=== PATIENT | female | born 1940 | race Caucasian/White ===

== ENCOUNTER 2023-09-13 11:27 | Inpatient (IN) | payer OTHER ==
[2023-09-13 12:53] LABS: Specific Gravity 1.014 (1.005-1.030); Urine Bacteria 20-50 /HPF (<20); Urine Bilirubin NEGATIVE (Negative); Urine Blood 2+ (Negative); Urine Clarity Extremely Turbid (Clear); Urine Color Orange (Yellow); Urine Glucose NEGATIVE (Negative); Urine Mucus 2+ /HPF (None Seen); Urine Protein 2+ (Negative); Urine RBC >50 /HPF (None Seen); Urine Urobilinogen Normal (Normal); Urine WBC Clump Many /HPF (None Seen); Urine pH 5.5 (5.0-7.0)
[2023-09-13 13:21] LABS: Absolute Lymphocytes (CBC) 0.7 K/uL (0.7-4.9); Hematocrit 38.4 % (36.0-45.0); Lymphocytes % 1.7 % (15.3-44.8); MCV 92.3 fL (80-100); MPV 8.7 fL (7.6-11.3); Platelets 343 thou/uL (152-406); RBC Red Blood Cell Count 4.17 M/uL (3.86-4.86)
[2023-09-13 14:21] LABS: C.diff Antigen/Toxin Ag pos : Tox pos (NEG : NEG)
[2023-09-13 14:29] LABS: Protime INR 1.59
[2023-09-13] MEDS ORDERED: CEFTRIAXONE 2000 MG/VIAL ONE (14:40)
[2023-09-13] MEDS ORDERED: ACETAMINOPHEN 650MG/RECT SUPP PR ONE (14:40)
[2023-09-13] MEDS ORDERED: NA CHLORIDE 0.9% 100 ML ONE (14:40)
[2023-09-13 14:43] LABS: Albumin 2.9 g/dL (3.4-5.0); Bilirubin Total 0.6 mg/dL (0.2-1.0); Magnesium 1.8 mg/dL (1.6-2.4); Potassium 4.4 mEq/L (3.5-5.1); Protein, Total 7.1 g/dL (6.4-8.2)
[2023-09-13 14:52] LABS: Blood Morphology Comment NOT SEEN (NOT SEEN); Dohle Bodies PRESENT; Platelet Estimate ADEQ
[2023-09-13 14:54] LABS: Thyroid Stimulating Hormone 7.87 uIU/mL (0.358-3.740)
[2023-09-13] MEDS ORDERED: NA CHLORIDE 0.9% 1,000 ML ONE (15:33)
--- NOTE | 2023-09-13 16:32 | RAD REPORT ---
EXAM DESCRIPTION: CT - Abdomen Pelvis W Contrast - 09/13/2023 3:12 pm CLINICAL HISTORY: ABD PAIN COMPARISON: Head Brain Wo Cont dated 09/13/2023 TECHNIQUE: Thin cut axial CT imaging of the abdomen and pelvis was performed following intravenous a dministration of 100 mL Isovue 300. Multiplanar reformats were generated and reviewed. All CT scans are performed using dose optimization technique as appropriate and may include automated exposure control or mA/KV adjustment according to patient size. FINDINGS: Bibasilar dependent subsegmental atelectasis. 8 mm pleural-based nodule in the left lower lobe. No other suspicious findings in the lung bases. The liver, spleen, and pancreas show no suspicious findings. Ovoid left soft tissue nodule in the lef t retroperitoneum measured 1.3 cm, may be of adrenal origin. Gallbladder and biliary tree are also wi thout suspicious finding. Symmetric renal function is seen, although motion artifact limits evaluation. Questionable region of hypoenhancement along the superior renal cortex. Multiple exophytic fluid density cysts, largest ragini uring 2.2 cm. No hydronephrosis or suspicious renal mass. No dilated bowel loops. Pronounced wall thickening with mucosal hyperenhancement throughout the ascen ding colon. Less pronounced wall thickening along the transverse colon. Segmental wall thickening wit h mucosal enhancement along the mid to distal sigmoid colon and rectal as well. No free air, free flu id or inflammatory stranding. No hernia, mass or bulky lymphadenopathy. The urinary bladder is withou t significant finding. No suspicious bony findings. IMPRESSION: Pronounced wall thickening and mucosal enhancement involving segments of the colon, name ly the ascending colon through transverse colon, as well as the distal sigmoid colon and rectum. Plac e suggest infectious or inflammatory colitis. Questionable regions of cortical hypoenhancement along the superior pole of the left kidney. This may relate to motion artifact, however possibility of early pyelonephritis cannot be entirely is. Other incidental findings including a pleural-based left lower lobe 8 mm nodule. Follow-up CT chest i s recommended in 6 months to ensure stability of this finding.
--- NOTE | 2023-09-13 16:35 | RAD REPORT ---
EXAM DESCRIPTION: CT - Head Brain Wo Cont - 09/13/2023 3:12 pm CLINICAL HISTORY: ams COMPARISON: No comparisons TECHNIQUE: Noncontrast head CT images were obtained without IV contrast. Multiplanar reformats were generated and reviewed. All CT scans are performed using dose optimization technique as appropriate and may include automated exposure control or mA/KV adjustment according to patient size. FINDINGS: No intracranial hemorrhage, mass, or edema. Midline structures are unremarkable. Moderate diffuse parenchymal volume loss. No evidence of hydrocephalus. Patchy predominantly subcortical white matter hypodensities, nonspecific, but suggestive of chronic s mall vessel ischemic changes. Cruz-white matter differentiation is preserved, without evidence of acute infarct. No abnormal extra- axial fluid collections. Left canal wall up mastoidectomy with cochlear implant in place a component overlying the left occipi reggie calvarium results in streak artifact which limits evaluation. Paranasal sinuses are clear. No acute bony findings. IMPRESSION: No evidence of an acute intracranial process. Chronic findings as above.
--- NOTE | 2023-09-13 17:26 | EDPHYS ---
Physician Documentation [facility] Name: Delphine Aldridge Age: 83 yrs Sex: Female : 1940 Arrival Date: 09/13/2023 Time: 11:27 Bed 14 Private MD: ED Physician Reddy Carrillo HPI: 09/13 17:59 This 83 yrs old Female presents to ER via EMS with complaints of Confusion. rt 17:59 Patient with recent admission for C. difficile colitis presents to the ED with rt confusion, reported leukocytosis, hyponatremia. History limited due to patient's confusion. Symptoms are severe in severity, no other aggravating or alleviating factors.. Historical: - Allergies: 11:36 No Known Allergies; cm10 - PMHx: 11:36 Congestive heart failure; Major depressive disorder; Glaucoma; Ventricular Tachycardia; cm10 Bradycardia; Irritable bowel syndrome; Alzheimer's disease; Venous Insufficiency; Atrial fibrillation; Dementia; Anxiety; Dysphagia; Hypertensive disorder; - Immunization history:: Adult Immunizations up to date. - Social history:: Smoking status: Patient denies any tobacco usage or history of. - Family history:: not pertinent. ROS: 17:59 Unable to obtain ROS due to altered mental status, rt Exam: 17:59 Head/Face: Normocephalic, atraumatic. Chest/axilla: Normal chest wall appearance and rt motion. Nontender with no deformity. No lesions are appreciated. Cardiovascular: Regular rate and rhythm with a normal S1 and S2. No gallops, murmurs, or rubs. Normal PMI, no JVD. No pulse deficits. Respiratory: Lungs have equal breath sounds bilaterally, clear to auscultation and percussion. No rales, rhonchi or wheezes noted. No increased work of breathing, no retractions or nasal flaring. Abdomen/GI: Soft, non-tender, with normal bowel sounds. No distension or tympany. No guarding or rebound. No evidence of tenderness throughout. Skin: Warm, dry with normal turgor. Normal color with no rashes, no lesions, and no evidence of cellulitis. MS/ Extremity: Pulses equal, no cyanosis. Neurovascular intact. Full, normal range of motion. 17:59 Constitutional: The patient appears Pale, confused 17:59 ECG was reviewed by the Attending Physician. 17:59 Neuro: Confused, moves all 4 extremities equally, Vital Signs: 11:34 BP 131 / 66; Pulse 82; Resp 16; Temp 97.1; Pulse Ox 100% on R/A; Pain 0/10; cm10 12:49 BP 125 / 58; Pulse 83; Resp 18 S; Pulse Ox 98% on R/A; cm10 13:00 BP 132 / 65; Pulse 82; Resp 16; Pulse Ox 100% on R/A; cm10 13:30 BP 109 / 94; Pulse 93; Resp 16; Pulse Ox 96% on R/A; cm10 14:00 BP 127 / 63; Pulse 84; Resp 14; Pulse Ox 98% on R/A; cm10 15:45 BP 135 / 58; Pulse 80; Resp 16; Pulse Ox 97% on R/A; cm10 16:00 BP 141 / 56; Pulse 82; Resp 16; Pulse Ox 100% on R/A; cm10 16:30 BP 123 / 51; Pulse 80; Resp 16; Pulse Ox 100% ; cm10 17:30 BP 142 / 57; Pulse 81; Resp 15; Pulse Ox 100% on R/A; cm10 18:00 BP 134 / 64; Pulse 80; Resp 16; Pulse Ox 98% on R/A; cm10 18:30 BP 130 / 75; Pulse 79; Resp 16; Pulse Ox 92% on R/A; cm10 19:07 BP 131 / 75; Pulse 81; Resp 17 S; Pulse Ox 100% on R/A; ha1 11:34 Pain Scale: Adult cm10 MDM: 11:39 Patient medically screened. rt 17:59 Differential Diagnosis Infection, intracranial hemorrhage, electrolyte disturbance. rt Data reviewed: vital signs, nurses notes, lab test result(s), EKG, radiologic studies. Consideration of Admission/Observation Patient was admitted/placed on observation. Management of patient was discussed with the following: Hospitalist: Agrees to admit. I considered the following discharge prescriptions or medication management in the emergency department Medications were administered in the Emergency Department. See MAR. Independent interpretation of the following test(s) in the Emergency Department CT Scan: My interpretation is No bowel obstruction syndrome interpretation of CT scan images. Care significantly affected by the following chronic conditions: Congestive Heart Failure. Counseling: I had a detailed discussion with the patient and/or guardian regarding the historical points, exam findings, and any diagnostic results supporting the discharge/admit diagnosis, lab results, radiology results, the need for further work-up and treatment in the hospital. ED course: Patient had no clear source of infection with stable vital signs, there was a delay in obtaining labs. As patient has CHF and possible hyponatremia, will be judicious with fluids. Once urinary tract infection was identified as well as C. difficile, antibiotics were given. Patient to be admitted for further care.. 09/13 11:49 Order name: CBC with Diff; Complete Time: 15:23 rt 09/13 11:49 Order name: CMP; Complete Time: 15:23 rt 09/13 11:49 Order name: Lipase; Complete Time: 15:23 rt 09/13 11:49 Order name: Urinalysis w/ reflexes; Complete Time: 13:41 rt 09/13 11:49 Order name: TSH; Complete Time: 15: rt 09/13 11:49 Order name: Magnesium; Complete Time: 15: rt 09/13 12:40 Order name: Blood Culture Adult (2) rt 09/13 12:40 Order name: Lactate w/ 2H reflex if indic.; Complete Time: 13:41 rt 09/13 12:40 Order name: Protime (+inr); Complete Time: 14:39 rt 09/13 12:40 Order name: Ptt, Activated; Complete Time: 14:39 rt 09/13 12:40 Order name: CDIFF; Complete Time: 14:39 rt 09/13 12:56 Order name: Urine Culture EDMS 09/13 14:53 Order name: Manual Differential; Complete Time: 15: EDFL 09/13 14:56 Order name: T4 Free; Complete Time: 15:23 EDMS 09/13 18:19 Order name: CBC with Automated Diff EDMS 09/13 18:19 Order name: CBC with Automated Diff EDMS 09/13 18:19 Order name: Comprehensive Metabolic Panel EDFL 09/13 18:19 Order name: Comprehensive Metabolic Panel EDFL 09/13 18:19 Order name: Lipid Profile EDMS 09/13 18:19 Order name: Lipid Profile EDFL 09/13 18:19 Order name: Liver (Hepatic) Function EDMS 09/13 18:19 Order name: Liver (Hepatic) Function EDFL 09/13 18:19 Order name: Protime (+INR) EDMS 09/13 18:19 Order name: Protime (+INR) EDMS 09/13 18:19 Order name: PTT, Activated Partial Thromb EDMS 09/13 18:19 Order name: PTT, Activated Partial Thromb EDMS 09/13 11:49 Order name: CT Abd/Pelvis - IV Contrast Only; Complete Time: 16:40 rt 09/13 11:49 Order name: CT Head Brain wo Cont; Complete Time: 16:40 rt 09/13 12:40 Order name: EKG; Complete Time: 12:40 rt 09/13 11:49 Order name: IV Saline Lock; Complete Time: 13:13 rt 09/13 11:49 Order name: Labs collected and sent; Complete Time: 13:13 rt 09/13 12:31 Order name: Labs - recollect needed: recollect all the labs/ hemolyzed per Binta; eb Complete Time: 16:03 09/13 12:40 Order name: Accucheck; Complete Time: 19:06 rt 09/13 12:40 Order name: Cardiac monitoring; Complete Time: 13:12 rt 09/13 12:40 Order name: EKG - Nurse/Tech; Complete Time: 13:13 rt 09/13 12:40 Order name: IV Saline Lock - Large Bore; Complete Time: 13:12 rt 09/13 12:40 Order name: O2 Per Protocol; Complete Time: 13:12 rt 09/13 12:40 Order name: O2 Sat Monitoring; Complete Time: 13:12 rt 09/13 12:40 Order name: Vital Signs; Complete Time: 13:12 rt 09/13 13:24 Order name: Labs - recollect needed: recollect blue top and green top/ both under eb filled; Complete Time: 14:04 EC:59 Rate is 87 beats/min. Rhythm is regular, 1st Degree Block with No ectopy. QRS [place] is rt Normal. QRS interval is normal. QT interval is normal. Clinical impression: NSR w/ Non-specific ST/T Changes. Administered Medications: 14:39 Not Given (Other Intervention Used): [id number] mg PO once rt 15:00 Drug: Rocephin IV 2 grams IV at calculated rate once; Given slow IV push per [place] cm10 instructions Route: IV; Rate: calculated rate; Site: left forearm; 15:52 Follow up: Response: No adverse reaction; IV Status: Completed infusion; IV Intake: cm10 100ml 15:00 Drug: Acetaminophen DC Suppository 650 mg DC once Route: DC; cm10 15:52 Follow up: Response: No adverse reaction cm10 15:51 Drug: NS 0.9% IV 1000 ml IV at 1 bolus Per protocol; 1000 mL bolus Route: IV; Rate: 1 cm10 bolus; Site: left forearm; 18:02 Follow up: IV Status: Completed infusion; IV Intake: 100ml cm10 18:02 Drug: metroNIDAZOLE IVPB 500 mg 100 ml IVPB at 200 ml/hr once over 30 mins Volume: 100 cm10 ml; Route: IVPB; Rate: 200 ml/hr; Infused Over: 30 mins; Site: left forearm; 19:06 Follow up: Response: No adverse reaction; IV Status: Completed infusion; IV Intake: cm10 100ml Disposition Summary: 09/13/23 17:26 Hospitalization Ordered Notes: Hospitalization Status: Inpatient Admission rt Provider: David Yanes rt Location: Telemetry/[facility] (Inpatient) rt Condition: Fair rt Problem: new rt Symptoms: are unchanged rt Bed/Room Type: Standard rt Room Assignment: 215(09/13/23 18:41) rv1 Diagnosis - Confusion rt - C. difficile colitis rt - UTI rt - Leukocytosis rt - Hyponatremia rt Forms: - Medication Reconciliation Form rt - SBAR form rt - Leadership Thank You Letter rt Critical care time excluding procedures: 18:06 Critical care time: Bedside Care: 30 minutes, Consultation: 5 minutes. Total time: 35 rt minutes Signatures: Dispatcher [employer] EDFL Angelica Sim Ryan, MD MD rt Sharee Smith rv1 Constanza Chowdhury RN RN cm10 Corrections: (The following items were deleted from the chart) 18:41 17:26 rt rv1
--- NOTE | 2023-09-13 17:26 | P.HP ---
Certification for Inpatient Patient admitted to: Inpatient With expected LOS: >2 Midnights Patient will require the following post-hospital care: None Practitioner: I am a practitioner with admitting privileges, knowledge of patient current condition, hospital course, and medical plan of care. Services: Services provided to patient in accordance with Admission requirements found in Title 42 Section 412.3 of the Code of Federal Regulations Patient History Date of Service: 09/13/23 Reason for admission: Persistent diarrhea History of Present Illness: Patient is an 83-year-old female with history of chronic kidney disease stage III, C. difficile colitis, Alzheimer's dementia, and recent Vfib/Vtach cardiac arrest on August 16, 2023. Patient was cardioverted and intubated and sedated and transferred to [facility] from [facility]. While at [facility] patient had a left heart catheterization which revealed nonischemic cardiomyopathy with an ejection fraction of 40%. Patient had dual- chamber ICD placed on August 27 after she was extubated on August 23, 2023. Patient was given IV fluids and her renal function improved. Patient was discharged to [facility] on September 05, 2023. Patient has been at [facility] for the last 10 days. Patient has had some abdominal pain, as well as diarrhea. Patient is developed some worsening confusion and with patient abdominal pain and diarrhea she was sent back to our emergency room for further evaluation. Patient has been given Flagyl and oral vancomycin in the past for her C. difficile. At this time, will start IV vancomycin and oral vancomycin. Patient will be changed to Dificid if there is no improvement. Patient will be admitted for IV hydration and antibiotic therapy. - Past Medical/Surgical History -: C. difficile colitis -: Nonischemic cardiomyopathy with an ejection fraction of 40 to 45% -: Hypertension -: Overactive bladder -: Chronic kidney disease stage III -: Collagenous colitis -: Alzheimer's dementia -: Atrial fibrillation -: Ventricular fibrillation/ventricular tachycardia cardiac arrest Past Surgical History: Patient denies surgical history -: ICD placement on August 27 -: -: Cochlear implant -: D&C -: EGD -: Total hip arthroplasty -: Total knee arthroplasty -: NAZARIO - Family History Father Family History: Reviewed- Non-Contributory - Social History Smoking Status: Former smoker Alcohol use: No CD- Drugs: No Review of Systems 10-point ROS is otherwise unremarkable Physical Examination - Vital Signs Temperature: 101 F (reviewed) - Physical Exam General: Alert, In no apparent distress, Oriented x1, Confused HEENT: Atraumatic, PERRLA, Mucous membr. moist/pink, EOMI, Sclerae nonicteric Neck: Supple, 2+ carotid pulse no bruit, No LAD, Without JVD or thyroid abnormality Respiratory: Clear to auscultation bilaterally, Normal air movement Cardiovascular: Regular rate/rhythm, Normal S1 S2 Gastrointestinal: Soft and benign, Non-distended, No rebound, No guarding, Tenderness Musculoskeletal: No tenderness Integumentary: No rashes Neurological: Sensation intact, Cranial nerves 3-12 intact - Studies Laboratory Data (last 24 hrs) 09/13/23 09/13/23 09/13/23 13:59 13:59 13:04 WBC 39.80 H Hgb 13.0 Hct 38.4 Plt Count 343 PT 17.3 H INR 1.59 APTT 34.9 Sodium 122 L Potassium 4.4 BUN 30 H Creatinine 1.52 H Glucose 104 Magnesium 1.8 Total Bilirubin 0.6 AST 14 L ALT 13 Alkaline Phosphatase 135 H Lipase 13 Assessment & Plan - Problems (Diagnosis) (1) Clostridium difficile colitis Current Visit: Yes Status: Acute (2) Cardiac arrest Current Visit: Yes Status: Acute (3) Atrial fibrillation Current Visit: Yes Status: Acute (4) Nonischemic cardiomyopathy Current Visit: Yes Status: Acute (5) Alzheimer's dementia Current Visit: Yes Status: Acute - Plan -IV antibiotics; start oral vancomycin -IV fluids -GI consultation as needed -CBC, CMP, lipase, stool cultures reviewed -Full liquid -continue with cardiac meds -Monitor renal function Discharge Plan: Home Plan to discharge in: Greater than 2 days - Advance Directives Does patient have a Living Will: No Does patient have a Durable POA for Healthcare: No - Code Status/Comfort Care Code Status Assessed: Yes Code Status: Full Code Critical Care: No Time Spent Managing PTS Care (In Minutes): 45
--- NOTE | 2023-09-13 17:26 | ER ---
Nurse's Notes [facility] Name: Delphine Aldridge Age: 83 yrs Sex: Female : 1940 Arrival Date: 09/13/2023 Time: 11:27 Bed 14 Private MD: Diagnosis: Confusion;C. difficile colitis;UTI;Leukocytosis;Hyponatremia Presentation: 09/13 11:34 Chief complaint: EMS states: Sent from [facility] due to patient having cm10 abnormal labs. Per EMS report, sodium was decreased and WBC were elevated. EMS reports that patient has been more confused, has not been wanting to ambulate and has had a decreased in appetite. Coronavirus screen: Vaccine status: Patient reports receiving the 2nd dose of the covid vaccine. Client denies travel out of the [place] in the last 14 days. Ebola Screen: Patient denies travel to an Ebola-affected area in the 21 days before illness onset. No symptoms or risks identified at this time. Initial Sepsis Screen: Does the patient meet any 2 criteria? No. Patient's initial sepsis screen is negative. Does the patient have a suspected source of infection? No. Patient's initial sepsis screen is negative. Risk Assessment: Do you want to hurt yourself or someone else? Patient reports no desire to harm self or others. Onset of symptoms was September 13, 2023. 11:34 Method Of Arrival: EMS: [facility] cm10 11:34 Acuity: GRACIE 3 cm10 Triage Assessment: 11:40 General: Appears in no apparent distress. comfortable, Behavior is calm, cooperative. cm10 Pain: Unable to use pain scale. Does not appear to understand pain scale. EENT: No deficits noted. Neuro: No deficits noted. Level of Consciousness is awake, confused, Oriented to person. Respiratory: No deficits noted. Airway is patent Respiratory effort is even, unlabored, Respiratory pattern is regular, symmetrical. Historical: - Allergies: 11:36 No Known Allergies; cm10 - PMHx: 11:36 Congestive heart failure; Major depressive disorder; Glaucoma; Ventricular Tachycardia; cm10 Bradycardia; Irritable bowel syndrome; Alzheimer's disease; Venous Insufficiency; Atrial fibrillation; Dementia; Anxiety; Dysphagia; Hypertensive disorder; - Immunization history:: Adult Immunizations up to date. - Social history:: Smoking status: Patient denies any tobacco usage or history of. - Family history:: not pertinent. Screenin:00 [facility] ED Fall Risk Assessment (Adult) History of falling in the last 3 months, cm10 including since admission Yes- fall prone (multiple falls) (3 pts) Confusion or Disorientation Yes (5 pts) Intoxicated or Sedated No (0 pts) Impaired Gait Yes (1 pt) Mobility Assist Device Used Yes (1 pt) Altered Elimination Yes (1 pt) Score/Fall Risk Level 3 or more points = High Risk Oriented to surroundings, Maintained a safe environment, Assessed \T\ reinforced patient's understanding of fall precautions, Provided non-skid footwear, Hourly rounding (assess needs \T\ fall precautionary measures) done, Used ambulatory aids as needed (educated on \T\ assisted with). Abuse screen: Denies threats or abuse. Denies injuries from another. Nutritional screening: No deficits noted. Tuberculosis screening: No symptoms or risk factors identified. Assessment: 12:00 General: Appears in no apparent distress. comfortable, Behavior is calm, cooperative. cm10 Neuro: No deficits noted. Level of Consciousness is awake, confused, Oriented to person. Cardiovascular: No deficits noted. Capillary refill < 3 seconds. Respiratory: No deficits noted. Airway is patent Respiratory effort is even, unlabored, Respiratory pattern is regular, symmetrical. GI: No deficits noted. Stools are reported to be loose. : No deficits noted. No signs and/or symptoms were reported regarding the genitourinary system. EENT: No deficits noted. No signs and/or symptoms were reported regarding the EENT system. 13:15 Reassessment: Patient appears in no apparent distress at this time. No changes from cm10 previously documented assessment. 13:29 Reassessment: Phlebotomy contacted at this time to re-draw labs. cm10 13:50 Reassessment: Phlebotomy at bedside. cm10 14:16 Reassessment: Patient appears in no apparent distress at this time. No changes from cm10 previously documented assessment. Family at bedside at this time. 15:25 Reassessment: Patient appears in no apparent distress at this time. No changes from cm10 previously documented assessment. Patient and/or family updated on plan of care and expected duration. Pain level reassessed. 16:30 Reassessment: Patient appears in no apparent distress at this time. No changes from cm10 previously documented assessment. Patient and/or family updated on plan of care and expected duration. Pain level reassessed. 18:07 Reassessment: Patient appears in no apparent distress at this time. Patient and/or cm10 family updated on plan of care and expected duration. Pain level reassessed. Pt more awake and alert at this time. Patient states feeling better. 18:52 Reassessment: Attempted to call report, no answer. cm10 19:10 General: Appears comfortable, Behavior is calm. Pain: Unable to use pain scale. FLACC ha1 scale score is 0 out of 10. Neuro: Level of Consciousness is awake, confused, Oriented to person. Cardiovascular: Capillary refill < 3 seconds. Respiratory: Airway is patent Respiratory effort is even, unlabored, Respiratory pattern is regular, symmetrical. GI: Stools are reported to be diarrhea. : No signs and/or symptoms were reported regarding the genitourinary system. Derm: Skin is fragile, Skin is normal. Musculoskeletal: Circulation, motion, and sensation intact. 19:18 Reassessment: attempted to give report. ha1 Vital Signs: 11:34 BP 131 / 66; Pulse 82; Resp 16; Temp 97.1; Pulse Ox 100% on R/A; Pain 0/10; cm10 12:49 BP 125 / 58; Pulse 83; Resp 18 S; Pulse Ox 98% on R/A; cm10 13:00 BP 132 / 65; Pulse 82; Resp 16; Pulse Ox 100% on R/A; cm10 13:30 BP 109 / 94; Pulse 93; Resp 16; Pulse Ox 96% on R/A; cm10 14:00 BP 127 / 63; Pulse 84; Resp 14; Pulse Ox 98% on R/A; cm10 15:45 BP 135 / 58; Pulse 80; Resp 16; Pulse Ox 97% on R/A; cm10 16:00 BP 141 / 56; Pulse 82; Resp 16; Pulse Ox 100% on R/A; cm10 16:30 BP 123 / 51; Pulse 80; Resp 16; Pulse Ox 100% ; cm10 17:30 BP 142 / 57; Pulse 81; Resp 15; Pulse Ox 100% on R/A; cm10 18:00 BP 134 / 64; Pulse 80; Resp 16; Pulse Ox 98% on R/A; cm10 18:30 BP 130 / 75; Pulse 79; Resp 16; Pulse Ox 92% on R/A; cm10 19:07 BP 131 / 75; Pulse 81; Resp 17 S; Pulse Ox 100% on R/A; ha1 11:34 Pain Scale: Adult cm10 ED Course: 11:27 Patient arrived in ED. cm10 11:34 Constanza Chowdhury, JEAN is Primary Nurse. cm10 11:36 Triage completed. cm10 11:38 Reddy Carrillo MD is Attending Physician. rt 11:39 Arm band placed on Patient placed in an exam room, on a stretcher. cm10 12:00 Patient has correct armband on for positive identification. Placed in gown. Bed in low cm10 position. Call light in reach. Side rails up X2. Adult w/ patient. Provided Education on: ER process and procedures. . Client placed on continuous cardiac and pulse oximetry monitoring. NIBP monitoring applied. 12:00 Inserted saline lock: 22 gauge in left forearm, using aseptic technique. Blood cm10 collected. 12:40 Straight cath inserted, using sterile technique, 14 Fr. Specimen obtained. Returned cm10 cloudy urine. Patient tolerated well. 13:03 Radiology exam delayed due to lab results not completed at this time. (BUN/Creatinine). nj 13:03 Radiology exam delayed due to IV insertion attempt and/or patient not having nj appropriate IV at this time. 13:17 No provider procedures requiring assistance completed. cm10 13:55 Radiology exam delayed due to lab results not completed at this time. (BUN/Creatinine). ls3 15:13 CT Head Brain wo Cont In Process Unspecified. EDMS 15:14 CT Abd/Pelvis - IV Contrast Only In Process Unspecified. EDMS 15:25 Patient moved back from CT. cm10 17:24 David Yanes MD is Hospitalizing Provider. rt 19:02 Report given to JEAN Feliciano. cm10 20:00 Patient admitted, IV remains in place. ha1 Administered Medications: 14:39 Not Given (Other Intervention Used): [id number] mg PO once rt 15:00 Drug: Rocephin IV 2 grams IV at calculated rate once; Given slow IV push per pharmarcy cm10 instructions Route: IV; Rate: calculated rate; Site: left forearm; 15:52 Follow up: Response: No adverse reaction; IV Status: Completed infusion; IV Intake: cm10 100ml 15:00 Drug: Acetaminophen WI Suppository 650 mg WI once Route: WI; cm10 15:52 Follow up: Response: No adverse reaction cm10 15:51 Drug: NS 0.9% IV 1000 ml IV at 1 bolus Per protocol; 1000 mL bolus Route: IV; Rate: 1 cm10 bolus; Site: left forearm; 18:02 Follow up: IV Status: Completed infusion; IV Intake: 100ml cm10 18:02 Drug: metroNIDAZOLE IVPB 500 mg 100 ml IVPB at 200 ml/hr once over 30 mins Volume: 100 cm10 ml; Route: IVPB; Rate: 200 ml/hr; Infused Over: 30 mins; Site: left forearm; 19:06 Follow up: Response: No adverse reaction; IV Status: Completed infusion; IV Intake: cm10 100ml Medication: 13:16 VIS not applicable for this client. cm10 Intake: 15:52 IV: 100ml; Total: 100ml. cm10 18:02 IV: 100ml; Total: 200ml. cm10 19:06 IV: 100ml; Total: 300ml. cm10 Outcome: 17:26 Decision to Hospitalize by Provider. rt 19:59 Admitted to Med/surg accompanied by tech, family with patient, via stretcher, room 215, ha1 with chart, Report called to JEAN Burger 19:59 Condition: stable 19:59 Discharge instructions given to patient, family, Instructed on the need for admit, Demonstrated understanding of instructions, 20:00 Patient left the ED. ha1 Signatures: Dispatcher [employer] EDMS Jesús Gutierrez Lynzie ls3 Jodie Maxwell RN RN ha1 Reddy Carrillo MD MD rt Constanza Chowdhury RN RN 10
[2023-09-13] MEDS ORDERED: METRONIDAZOLE 500mg IVPB 500 MG/100 ML BAG IV ONE (17:52)
[2023-09-13] MEDS ORDERED: ONDANSETRON 4 MG/2 ML VIAL IV PRN (18:13)
[2023-09-13] MEDS: APIXABAN 5 MG TABLET PO SCH (21:55)
[2023-09-13] MEDS: NA CHLORIDE 0.9% 1,000 ML IV SCH (21:55)
[2023-09-13] MEDS: SPIRONOLACTONE 25 MG TABLET PO SCH (21:55)
[2023-09-13] MEDS: MORPHINE 2 MG/ML SYR IV PRN (22:06)
[2023-09-13 22:07] VITALS: BMI 22.1
[2023-09-13] MEDS: METHYLPREDNISOLONE 125 MG INJ IV SCH (23:48)
[2023-09-14] MEDS: ACETAMINOPHEN 500 MG TAB PO PRN (00:39)
[2023-09-14 00:50] LABS: Specific Gravity 1.029 (1.005-1.030); Urine Bacteria None Seen /HPF (<20); Urine Bilirubin NEGATIVE (Negative); Urine Blood 1+ (Negative); Urine Clarity Extremely Turbid (Clear); Urine Color Orange (Yellow); Urine Glucose NEGATIVE (Negative); Urine Mucus 1+ /HPF (None Seen); Urine Protein 2+ (Negative); Urine RBC 21-50 /HPF (None Seen); Urine Urobilinogen Normal (Normal); Urine WBC Clump Many /HPF (None Seen); Urine pH 5.5 (5.0-7.0)
[2023-09-14] MEDS: VANCOMYCIN HCL 125 MG CAPSULE PO SCH (01:00)
[2023-09-14 04:25] LABS: Absolute Lymphocytes (CBC) 0.2 K/uL (0.7-4.9); Hematocrit 33.5 % (36.0-45.0); Lymphocytes % 0.7 % (15.3-44.8); MCV 92.8 fL (80-100); MPV 8.4 fL (7.6-11.3); Platelets 288 thou/uL (152-406); RBC Red Blood Cell Count 3.61 M/uL (3.86-4.86)
[2023-09-14 04:34] LABS: Protime INR 1.57
[2023-09-14 04:42] LABS: AST/SGOT 8 U/L (15-37); Albumin 2.9 g/dL (3.4-5.0); Alkaline Phosphatase 123 U/L (45-117); BUN Blood Urea Nitrogen 31 mg/dL (7-18); Bicarbonate 23 mEq/L (21-32); Bilirubin Direct 0.1 mg/dL (0-0.2); Bilirubin Indirect, Calculated 0.2 mg/dL (0.2-0.8); Bilirubin Total 0.3 mg/dL (0.2-1.0); Glomerular Filtration Rate 38 ml/min (=/>90); Glucose Level 115 mg/dL (74-106); HDL Cholesterol 41 mg/dL (40-60); LDL Cholesterol, Calculated 87 mg/dL (<130); Potassium 4.4 mEq/L (3.5-5.1); Protein, Total 6.7 g/dL (6.4-8.2); Sodium Level 123 mEq/L (136-145)
[2023-09-14 04:47] LABS: ALT/SGPT < 10 U/L (13-56)
[2023-09-14] MEDS: METOPROLOL TAR 25 MG TAB PO SCH (06:08)
--- NOTE | 2023-09-14 11:38 | P.PN ---
Subjective Date of Service: 09/14/23 Chief Complaint: Persistent diarrhea HPI per Patient is an 83-year-old female with history of chronic kidney disease stage III, C. difficile colitis, Alzheimer's dementia, and recent Vfib/Vtach cardiac arrest on August 16, 2023. Patient was cardioverted and intubated and sedated and transferred to [facility] from [facility]. While at [facility] patient had a left heart catheterization which revealed nonischemic cardiomyopathy with an ejection fraction of 40%. Patient had dual- chamber ICD placed on August 27 after she was extubated on August 23, 2023. Patient was given IV fluids and her renal function improved. Patient was discharged to [facility] on September 05, 2023. Patient has been at [facility] for the last 10 days. Patient has had some abdominal pain, as well as diarrhea. Patient is developed some worsening confusion and with patient abdominal pain and diarrhea she was sent back to our emergency room for further evaluation. Patient has been given Flagyl and oral vancomycin in the past for her C. difficile. At this time, will start IV vancomycin and oral vancomycin. Patient will be changed to Dificid if there is no improvement. Patient will be admitted for IV hydration and antibiotic therapy. - Physical Exam General: Alert, In no apparent distress, Oriented x1, Confused HEENT: Atraumatic, PERRLA, Mucous membr. moist/pink, EOMI, Sclerae nonicteric Neck: Supple, 2+ carotid pulse no bruit, No LAD, Without JVD or thyroid abnormality Respiratory: Clear to auscultation bilaterally, Normal air movement Cardiovascular: Regular rate/rhythm, Normal S1 S2 Gastrointestinal: Soft and benign, Non-distended, No rebound, No guarding, Tend erness Musculoskeletal: No tenderness Integumentary: No rashes Neurological: Sensation intact, Cranial nerves 3-12 intact Review of Systems PER HPI Physical Examination - Vital Signs Temperature: 97.4 F Blood Pressure: 133/58 Pulse: 74 Respirations: 20 Pulse Ox (%): 96 - Studies Laboratory Data (last 24 hrs) 09/13/23 09/13/23 09/13/23 13:59 13:59 13:04 WBC 39.80 H Hgb 13.0 Hct 38.4 Plt Count 343 PT 17.3 H INR 1.59 APTT 34.9 Sodium 122 L Potassium 4.4 BUN 30 H Creatinine 1.52 H Glucose 104 Magnesium 1.8 Total Bilirubin 0.6 AST 14 L ALT 13 Alkaline Phosphatase 135 H Lipase 13 Assessment And Plan - Plan Assessment & Plan (1) Clostridium difficile colitis Current Visit: Yes Status: Acute -IV antibiotics; start oral vancomycin -IV fluids -GI consultation as needed -CBC, CMP, lipase, stool cultures reviewed -Full liquid Sepsis without shock likely source secondary acute on chronic C. difficile Failed outpatient treatment for C. difficile WBCs 39.80, repeat 24.40 Acute on chronic kidney injury likely secondary to prerenal dehydration Trend kidney function BUN 30 creatinine 1.5, IV fluids Hyponatremia improving Sodium 122, 123 -Monitor renal function History cardiac arrest Current Visit: Yes Status: Acute Nonischemic cardiomyopathy Current Visit: Yes Status: Acute Atrial fibrillation Current Visit: Yes Status: Acute -continue with cardiac meds Alzheimer's dementia Current Visit: Yes Status: Acute Supportive care, fall precaution DVT Eliquis Diet cardiac Full code Discharge Plan: Home Plan to discharge in: Greater than 2 days Discharge Plan: Penitentiary - Code Status/Comfort Care Code Status: Full Code Critical Care: No Time Spent Managing PTS Care (In Minutes): 35
[2023-09-15] MEDS: LORazepam 2 MG/ML VIAL IV ONE (02:44)
[2023-09-15 04:28] LABS: Absolute Lymphocytes (CBC) 0.4 K/uL (0.7-4.9); Hematocrit 29.3 % (36.0-45.0); Lymphocytes % 3.7 % (15.3-44.8); MPV 8.4 fL (7.6-11.3); Platelets 325 thou/uL (152-406); RBC Red Blood Cell Count 3.15 M/uL (3.86-4.86)
[2023-09-15 04:45] LABS: Potassium 4.2 mEq/L (3.5-5.1)
[2023-09-15 05:58] LABS: Blood Morphology Comment NOTED (NOT SEEN); Burr Cells FEW; Platelet Estimate ADEQ; Platelets, Giant NOTED; Poikilocytosis SLIGHT
[2023-09-15] MEDS: QUETIAPINE 25 MG TAB PO ONE ×2 (07:34→23:40)
--- NOTE | 2023-09-15 07:46 | P.PN ---
Subjective Date of Service: 09/15/23 Chief Complaint: Persistent diarrhea HPI per Patient is an 83-year-old female with history of chronic kidney disease stage III, C. difficile colitis, Alzheimer's dementia, and recent Vfib/Vtach cardiac arrest on August 16, 2023. Patient was cardioverted and intubated and sedated and transferred to [facility] from [facility]. While at [facility] patient had a left heart catheterization which revealed nonischemic cardiomyopathy with an ejection fraction of 40%. Patient had dual- chamber ICD placed on August 27 after she was extubated on August 23, 2023. Patient was given IV fluids and her renal function improved. Patient was discharged to [facility] on September 05, 2023. Patient has been at [facility] for the last 10 days. Patient has had some abdominal pain, as well as diarrhea. Patient is developed some worsening confusion and with patient abdominal pain and diarrhea she was sent back to our emergency room for further evaluation. Patient has been given Flagyl and oral vancomycin in the past for her C. difficile. At this time, will start IV vancomycin and oral vancomycin. Patient will be changed to Dificid if there is no improvement. Patient will be admitted for IV hydration and antibiotic therapy. - Physical Exam General: Alert, In no apparent distress, Oriented x1, Confused HEENT: Atraumatic, PERRLA, Mucous membr. moist/pink, EOMI, Sclerae nonicteric Neck: Supple, 2+ carotid pulse no bruit, No LAD, Without JVD or thyroid abnormality Respiratory: Clear to auscultation bilaterally, Normal air movement Cardiovascular: Regular rate/rhythm, Normal S1 S2 Gastrointestinal: Soft and benign, Non-distended, No rebound, No guarding, Tend erness Musculoskeletal: No tenderness Integumentary: No rashes Neurological: Sensation intact, Cranial nerves 3-12 intact Physical Examination - Vital Signs Temperature: 97.2 F Blood Pressure: 138/61 Pulse: 68 Respirations: 17 Pulse Ox (%): 98 - Studies Microbiology Data (last 24 hrs): 09/13/23 12:37 Clean Catch Urine [place] Count - Final >100,000 CFU/ML. 09/13/23 12:37 Clean Catch Urine - Final Klebsiella Oxytoca Assessment And Plan - Plan Assessment & Plan (1) Clostridium difficile colitis Current Visit: Yes Status: Acute -IV antibiotics; start oral vancomycin -IV fluids -GI consultation as needed -CBC, CMP, lipase, stool cultures reviewed -Full liquid Sepsis without shock likely source secondary acute on chronic C. difficile Failed outpatient treatment for C. difficile WBCs 39.80, repeat 24.40 Acute on chronic kidney injury likely secondary to prerenal dehydration Trend kidney function BUN 30 creatinine 1.5, IV fluids Hyponatremia improving Sodium 122, 123 -Monitor renal function History cardiac arrest Current Visit: Yes Status: Acute Nonischemic cardiomyopathy Current Visit: Yes Status: Acute Atrial fibrillation Current Visit: Yes Status: Acute -continue with cardiac meds Alzheimer's dementia Current Visit: Yes Status: Acute Supportive care, fall precaution DVT Eliquis Diet cardiac Full code Discharge Plan: Home Plan to discharge in: Greater than 2 days
[2023-09-16 04:22] LABS: Absolute Lymphocytes (CBC) 0.8 K/uL (0.7-4.9); Hematocrit 28.5 % (36.0-45.0); Lymphocytes % 8.3 % (15.3-44.8); MCV 93.3 fL (80-100); MPV 8.4 fL (7.6-11.3); Platelets 323 thou/uL (152-406); RBC Red Blood Cell Count 3.06 M/uL (3.86-4.86)
[2023-09-16 04:27] LABS: Magnesium 1.9 mg/dL (1.6-2.4); Potassium 4.2 mEq/L (3.5-5.1)
--- NOTE | 2023-09-16 07:33 | P.PN ---
Date of Service: 09/16/23 Chief Complaint: C diff isolation. Pt not aware of any further diarrhea, right knee hematoma tender HPI per Patient is an 83-year-old female with history of chronic kidney disease stage III, C. difficile colitis, Alzheimer's dementia, and recent Vfib/Vtach cardiac arrest on August 16, 2023. Patient was cardioverted and intubated and sedated and transferred to [facility] from [facility]. While at [facility] patient had a left heart catheterization which revealed nonisc hemic cardiomyopathy with an ejection fraction of 40%. Patient had dual-chamber ICD placed on August 27 after she was extubated on August 23, 2023. Patient was given IV fluids and her renal function improved. Patient was discharged to [facility] on September 05, 2023. Patient has been at [facility] for the last 10 days. Patient has had some abdominal pain, as well as diarrhea. Patient is developed some worsening confusion and with patient abdominal pain and diarrhea she was sent back to our emergency room for further evaluation. Patient has been given Flagyl and oral vancomycin in the past for her C. difficile. At this time, will start IV vancomycin and oral vancomycin. Patient will be changed to Dificid if there is no improvement. Patient will be admitted for IV hydration and antibiotic therapy. - Physical Exam General: Alert, In no apparent distress, Oriented x 2, HEENT: Atraumatic, PERRLA, Mucous membr. moist/pink, EOMI, Sclerae nonicteric, cochlear implant Neck: Supple, 2+ carotid pulse, No LAD, Without JVD or thyroid abnormality Respiratory: Clear to auscultation bilaterally, Normal air movement Cardiovascular: Regular rate/rhythm, Normal S1 S2, fresh pacemaker incision healing well Gastrointestinal: Soft and benign, Non-distended, No rebound, No guarding, mild lower quad tenderness Musculoskeletal: No tenderness Integumentary: No rashes Neurological: Sensation intact Physical Examination - Vital Signs Temperature: 97.2 F Blood Pressure: 138/61 Pulse: 68 Respirations: 17 Pulse Ox (%): 98 - Studies Microbiology Data (last 24 hrs): 09/13/23 12:37 Clean Catch Urine [place] Count - Final >100,000 CFU/ML. 09/13/23 12:37 Clean Catch Urine - Final Klebsiella Oxytoca Assessment And Plan - Plan Assessment & Plan (1) Clostridium difficile colitis Current Visit: Yes Status: Acute -Continue oral vancomycin -IV fluids -GI consultation as needed -CBC, CMP, lipase, stool cultures reviewed -Full liquid - advance to cardiac Sepsis without shock likely source secondary acute on chronic C. difficile WBCs 39.80 - trending down. Urine culture + for K. Oxytoca, sensitive to most abx. Will give Rocephin. Acute on chronic kidney injury likely secondary to prerenal dehydration Trend kidney function BUN 27 creatinine 0.87, IV fluids Hyponatremia improving Sodium 122, 123, 126 ->134 this am -Monitor renal function History cardiac arrest Current Visit: Yes Status: Acute Nonischemic cardiomyopathy Current Visit: Yes Status: Acute Atrial fibrillation Current Visit: Yes Status: Acute -continue with cardiac meds Alzheimer's dementia Current Visit: Yes Status: Acute Supportive care, fall precaution Hematoma to right knee: Pad knee with pillows, pain medications as required DVT Eliquis Diet cardiac Full code Discharge Plan: Home Plan to discharge in: Greater than 2 days
[2023-09-16] MEDS: VANCOMYCIN HCL 125 MG CAPSULE PO SCH (08:45)
[2023-09-16] MEDS ORDERED: VANCOMYCIN HCL 125 MG CAPSULE PO SCH (09:00)
--- NOTE | 2023-09-16 14:39 | EKG ---
Test Date: 2023-09-13 Test Time: 11:59:58 Tobacco Checkout Clerk: SHANNAN MEASUREMENT RESULTS: Intervals: Rate: 87 WY: 248 QRSD: 128 QT: 414 QTc: 498 [place]: P: 78 WY: 248 QRS: 55 T: 231 INTERPRETIVE STATEMENTS: Sinus rhythm with 1st degree AV block Nonspecific intraventricular block Cannot rule out Septal infarct, age undetermined T wave abnormality, consider inferolateral ischemia Abnormal ECG No previous ECG available for comparison Electronically Signed On 09-16-23 14:30:11 HUMAN RESOURCES LEADER by Cezar Drake
[2023-09-16] MEDS: Banana Flakes/T-Galactooligos 1 Dose Packet PO SCH (20:08)
[2023-09-16] MEDS: QUETIAPINE 25 MG TAB PO SCH (20:09)
[2023-09-17] MEDS: LORazepam 2 MG/ML VIAL IV ONE (00:14)
[2023-09-17 04:34] LABS: Hematocrit 29.1 % (36.0-45.0); Lymphocytes % 10.8 % (15.3-44.8); MCV 93.1 fL (80-100); MPV 7.8 fL (7.6-11.3); Platelets 344 thou/uL (152-406); RBC Red Blood Cell Count 3.12 M/uL (3.86-4.86)
[2023-09-17 04:41] LABS: Magnesium 1.7 mg/dL (1.6-2.4); Potassium 3.8 mEq/L (3.5-5.1)
--- NOTE | 2023-09-17 11:09 | RAD REPORT ---
EXAM DESCRIPTION: Andrea Mcrae Cont09/17/2023 10:36 am CLINICAL HISTORY: Right knee pain and swelling COMPARISON: October 26 x-ray TECHNIQUE: Computed axial tomography of the right knee was obtained with coronal and sagittal recons truction. All CT scans are performed using dose optimization technique as appropriate and may include automated exposure control or mA/KV adjustment according to patient size. FINDINGS: Postsurgical changes of a right knee arthroplasty. No evidence of loosening of the prosthesis. No fracture or dislocation A 6 centimeter fluid collection anteromedial subcutaneous tissues has the appearance of a subacute he matoma. Hounsfield unit 81 IMPRESSION: 6 centimeters subacute hematoma anteromedial knee
--- NOTE | 2023-09-17 14:53 | P.PN ---
Date of Service: 09/17/23 Chief Complaint: C diff isolation. Pt not aware of any further diarrhea, right knee hematoma tender HPI per Patient is an 83-year-old female with history of chronic kidney disease stage III, C. difficile colitis, Alzheimer's dementia, and recent Vfib/Vtach cardiac arrest on August 16, 2023. Patient was cardioverted and intubated and sedated and transferred to [facility] from [facility]. While at [facility] patient had a left heart catheterization which revealed nonisc hemic cardiomyopathy with an ejection fraction of 40%. Patient had dual-chamber ICD placed on August 27 after she was extubated on August 23, 2023. Patient was given IV fluids and her renal function improved. Patient was discharged to [facility] on September 05, 2023. Patient has been at [facility] for the last 10 days. Patient has had some abdominal pain, as well as diarrhea. Patient is developed some worsening confusion and with patient abdominal pain and diarrhea she was sent back to our emergency room for further evaluation. Patient has been given Flagyl and oral vancomycin in the past for her C. difficile. At this time, will start IV vancomycin and oral vancomycin. Patient will be changed to Dificid if there is no improvement. Patient will be admitted for IV hydration and antibiotic therapy. - Physical Exam General: Alert, In no apparent distress, Oriented x 2, HEENT: Atraumatic, PERRLA, Mucous membr. moist/pink, EOMI, Sclerae nonicteric, cochlear implant Neck: Supple, 2+ carotid pulse, No LAD, Without JVD or thyroid abnormality Respiratory: Clear to auscultation bilaterally, Normal air movement Cardiovascular: Regular rate/rhythm, Normal S1 S2, fresh pacemaker incision healing well Gastrointestinal: Soft and benign, Non-distended, No rebound, No guarding, mild lower quad tenderness Musculoskeletal: No tenderness Integumentary: No rashes Neurological: Sensation intact Physical Examination - Vital Signs Temperature: 97.2 F Blood Pressure: 138/61 Pulse: 68 Respirations: 17 Pulse Ox (%): 98 - Studies Microbiology Data (last 24 hrs): 09/13/23 12:37 Clean Catch Urine [place] Count - Final >100,000 CFU/ML. 09/13/23 12:37 Clean Catch Urine - Final Klebsiella Oxytoca Assessment And Plan - Plan Assessment & Plan (1) Clostridium difficile colitis Current Visit: Yes Status: Acute -Continue oral vancomycin -IV fluids -GI consultation as needed -CBC, CMP, lipase, stool cultures reviewed -Full liquid - advance to cardiac Sepsis without shock likely source secondary acute on chronic C. difficile WBCs 39.80 - trending down. Urine culture + for K. Oxytoca, sensitive to most abx. Will give Rocephin. Acute on chronic kidney injury likely secondary to prerenal dehydration Trend kidney function BUN 18 creatinine 0.76, IV fluids Hyponatremia improving Sodium 122, 123, 126 ->135 this am -Monitor renal function History cardiac arrest Current Visit: Yes Status: Acute Nonischemic cardiomyopathy Current Visit: Yes Status: Acute Atrial fibrillation Current Visit: Yes Status: Acute -continue with cardiac meds Alzheimer's dementia Current Visit: Yes Status: Acute Supportive care, fall precaution Hematoma to right knee: Pad knee with pillows, pain medications as required CT right knee 6cm hematoma medially, no fracture, superficial blood blister punctured with 31g needle, sero-sanguineous fluid aspirated and sent for culture. Tegaderm to knee DVT Eliquis Diet cardiac Full code Discharge Plan: [facility] Plan to discharge in: 1 day
--- NOTE | 2023-09-17 17:33 | P.DS ---
Admission Date: 09/13/23 Discharge Date: 09/18/23 Disposition: TRANSFER TO SNF - REHAB Discharge Condition: GOOD Reason for Admission: Persistent diarrhea Brief History of Present Illness: Patient is an 83-year-old female with history of chronic kidney disease stage III, C. difficile colitis, Alzheimer's dementia, and recent Vfib/Vtach cardiac arrest on August 16, 2023. Patient was cardioverted and intubated and sedated and transferred to [facility] from [facility]. While at [facility] patient had a left heart catheterization which revealed nonischemic cardiomyopathy with an ejection fraction of 40%. Patient had dual- chamber ICD placed on August 27 after she was extubated on August 23, 2023. Patient was given IV fluids and her renal function improved. Patient was discharged to [facility] on September 05, 2023. Patient has been at [facility] for the last 10 days. Patient has had some abdominal pain, as well as diarrhea. Patient is developed some worsening confusion and with patient abdominal pain and diarrhea she was sent back to our emergency room for further evaluation. Patient has been given Flagyl and oral vancomycin in the past for her C. difficile. At this time, will start IV vancomycin and oral vancomycin. Patient will be changed to Dificid if there is no improvement. Patient will be admitted for IV hydration and antibiotic therapy. Hospital Course: Ms. Aldridge was admitted for C. difficile and generalized weakness with acute on chronic kidney disease. She has been on oral vancomycin with improvement in her diarrhea frequency and subsequent improvement in her renal function. She has been confused. She had not been tolerating physical therapy secondary to right knee pain. Her right knee large medial hematoma which developed a bulla. The bulla was aspirated of serosanguineous discharge and sent to the lab for culture. Today she is alert, oriented to person and time, and freely conversational. A right knee immobilizer will be placed today for increased comfort and PT will evaluate. Ms. Aldridge is awaiting placement at [facility]. Vital Signs/Physical Exam: Temp Pulse Resp BP Pulse Ox 97.9 F 67 15 152/65 H 100 09/17/23 12:00 09/17/23 12:00 09/17/23 12:00 09/17/23 12:00 09/17/23 12:00 General: Alert, In no apparent distress, Other (awake and talking to me without provocation this am) HEENT: Atraumatic, Normocephalic Neck: Supple, 2+ carotid pulse no bruit Respiratory: Normal air movement Cardiovascular: No edema Capillary refill: <2 Seconds Gastrointestinal: Normal bowel sounds, Soft and benign Musculoskeletal: No clubbing, No swelling, Other (right knee with hematoma, tenderness, warmth, superficial bullae aspirated and sent for culture, tegaderm placed. CT shows no fx, 6cm hematoma medially, less tender today, more ROM, awaiting Knee Immobilizer ) Integumentary: Other (as noted to knee) Neurological: Normal speech, Normal tone, Other (cochlear implant, [place] [place]) Lymphatics: No axilla or inguinal lymphadenopathy Urinary: Banks catheter External genitalia: Deferred Rectal: Deferred Laboratory Data at Discharge: WBC 9.00 thou/uL (4.3-10.9) 09/17/23 03:58 Hgb 10.2 g/dL (12.0-15.0) L 09/17/23 03:58 Hct 29.1 % (36.0-45.0) L 09/17/23 03:58 Plt Count 344 thou/uL (152-406) 09/17/23 03:58 PT 17.0 SECONDS (9.5-12.5) H 09/14/23 04:11 INR 1.57 09/14/23 04:11 APTT 35.8 SECONDS (24.3-36.9) 09/14/23 04:11 Sodium 135 mEq/L (136-145) L 09/17/23 03:58 Potassium 3.8 mEq/L (3.5-5.1) 09/17/23 03:58 BUN 18 mg/dL (7-18) 09/17/23 03:58 Creatinine 0.76 mg/dL (0.55-1.02) 09/17/23 03:58 Glucose 84 mg/dL (74-106) 09/17/23 03:58 Magnesium 1.7 mg/dL (1.6-2.4) 09/17/23 03:58 Total Bilirubin 0.3 mg/dL (0.2-1.0) 09/14/23 04:11 AST 8 U/L (15-37) L 09/14/23 04:11 ALT < 10 U/L (13-56) L 09/14/23 04:11 Alkaline Phosphatase 123 U/L (45-117) H 09/14/23 04:11 Triglycerides 87 mg/dL (<150) 09/14/23 04:11 Cholesterol 145 mg/dL (<200) 09/14/23 04:11 HDL Cholesterol 41 mg/dL (40-60) 09/14/23 04:11 Cholesterol/HDL Ratio 3.54 09/14/23 04:11 Lipase 13 U/L (13-75) 09/13/23 13:59 Home Medications: Acetaminophen 2 tab PO Q6H PRN 09/14/23 Apixaban [Eliquis] 5 mg PO BID 09/14/23 Ascorbic Acid 500 mg PO DAILY 09/14/23 Budesonide [Budesonide EC] 3 mg PO BID 09/14/23 Cholecalciferol (Vitamin D3) [Vitamin D3] 50 mcg PO DAILY 09/14/23 Cyanocobalamin [Vitamin B-12*] 1,000 mcg PO DAILY 09/14/23 Duloxetine HCl 30 mg PO DAILY 09/14/23 Estradiol Vaginal Insert 1 gm VAG SEECOM 09/14/23 Furosemide [Lasix*] 20 mg PO SEECOM PRN 09/14/23 Galantamine HBr [Galantamine ER] 8 mg PO BID 09/14/23 Latanoprost 0.005% Eye Drops 1 gtt EACH EYE BEDTIME 09/14/23 Levothyroxine Sodium [Synthroid] 150 mcg PO DAILY 09/14/23 Losartan Potassium [Cozaar] 25 mg PO DAILY 09/14/23 Magnesium Oxide [Magnesium] 400 mg PO BID 09/14/23 Memantine HCl [Namenda*] 10 mg PO DAILY 09/14/23 Potassium Chloride [Klor-Con 10] 10 meq PO DAILY 09/14/23 Pyridoxine HCl (Vitamin B6) [Pyridoxine HCl] 50 mg PO DAILY 09/14/23 Spironolactone [Aldactone] 50 mg PO DAILY 09/14/23 Zinc 50 Mg 50 mg PO DAILY 09/14/23 Doxycycline Hyclate 100 mg PO BID #18 09/17/23 Vancomycin HCl 125 mg PO QID #71 cap 09/17/23 New Medications: Doxycycline Hyclate 100 mg PO BID #18 Vancomycin HCl 125 mg PO QID #71 cap Physician Discharge Instructions: [address] [address] P:[phone]/ F:[phone] Diet: AHA Followup: Delroy Murphy MD [Primary Care Provider] -
[2023-09-17] MEDS: dexAMETHasone 4 MG/ML VIAL IV SCH (17:54)
[2023-09-17] MEDS: DOXYCYCLINE 100 MG CAP PO SCH (20:26)
[2023-09-17 22:34] VITALS: O2SAT 99
[2023-09-18 17:18] VITALS: BP 144/67; TEMP 99.5
[2023-09-18] MEDS ORDERED: ENSURE HIGH PROTEIN 237 ML CAN PO SCH (21:00)
[2023-09-18] MEDS ORDERED: Banana Flakes/T-Galactooligos 1 Dose Packet PO SCH (21:00)
== END 2023-09-18 19:10 | DRG 872 ==
LOC: ER 11:27 → ERHOLD 18:13 → 2ND 19:17
PROVIDERS: ADMIT Hospitalist; ATTEND Hospitalist
PROC: 0T9B70Z Drainage of Bladder with Drainage Device, Via Natural or Artificial Opening (ICD-10-PCS; principal; 2023-09-13)
DX: A41.9 Sepsis, unspecified organism (principal); A04.72 Enterocolitis due to Clostridium difficile, not specified as recurrent; I42.8 Other cardiomyopathies; E87.1 Hypo-osmolality and hyponatremia; N39.0 Urinary tract infection, site not specified; N17.9 Acute kidney failure, unspecified; I12.9 Hypertensive chronic kidney disease with stage 1 through stage 4 chronic kidney disease, or unspecified chronic kidney disease; N18.30 Chronic kidney disease, stage 3 unspecified; E86.0 Dehydration; G30.9 Alzheimer's disease, unspecified; F02.80 Dementia in other diseases classified elsewhere, unspecified severity, without behavioral disturbance, psychotic disturbance, mood disturbance, and anxiety; S80.01XA Contusion of right knee, initial encounter; Z95.810 Presence of automatic (implantable) cardiac defibrillator; Z96.649 Presence of unspecified artificial hip joint; Z96.659 Presence of unspecified artificial knee joint; Z87.891 Personal history of nicotine dependence
CPT/HCPCS: 36415; 51702; 70450; 73700; 74177; 80048; 80053; 80061; 81001; 82248; 83605; 83690; 83735; 84439; 84443; 85025; 85610; 85730; 87040; 87070; 87077; 87086; 87088; 87186; 87205; 87324; 93005; 96361; 96365; 96367; 97161; 97530; 99285; J0696; J1100; J2270; J2930; J7030; Q9967

== ENCOUNTER 2023-10-23 10:44 | Inpatient (IN) | payer OTHER ==
[2023-10-23 11:30] LABS: Absolute Lymphocytes (CBC) 0.4 K/uL (0.7-4.9); Absolute Monocytes 0.6 K/uL (0.1-1.3); Absolute Neutrophil 14.3 K/uL (1.8-8.0); Basophils % 0.2 % (0-1.3); Eosinophils % 0.1 % (0-4.4); Hematocrit 35.9 % (36.0-45.0); Hemoglobin 11.8 g/dL (12.0-15.0); Lymphocytes % 2.9 % (15.3-44.8); MCH 32.2 pg (27.0-35.0); MCHC 32.8 g/dL (32.0-36.0); MCV 98.1 fL (80-100); MPV 7.6 fL (7.6-11.3); Monocytes % 3.6 % (3.3-12.3); Neutrophils % 93.2 % (41.7-73.7); Platelets 268 thou/uL (152-406); RBC Red Blood Cell Count 3.66 M/uL (3.86-4.86); Red Cell Distribution Width 18.2 % (12.1-15.2)
[2023-10-23 11:34] LABS: Protime INR 1.57
--- NOTE | 2023-10-23 11:34 | RAD REPORT ---
EXAM DESCRIPTION: CT - Abdomen Pelvis Wo Contrast - 10/23/2023 11:24 am CLINICAL HISTORY: Abdominal pain. ABD PAIN COMPARISON: Abdomen Pelvis W Contrast dated 09/13/2023 TECHNIQUE: CT imaging of the abdomen and pelvis was performed without contrast. Solid organ, bowel a nd vascular assessment is limited due to lack of IV and oral contrast. All CT scans are performed using dose optimization technique as appropriate and may include automated exposure control or mA/KV adjustment according to patient size. FINDINGS: The lower lung willson are clear.Pacer wires noted. The liver, spleen, pancreas, adrenal glands and kidneys are within normal limits for a limited non-co ntrast examination. No bowel obstruction, free air, free fluid or abscess. There is prominent retained stool throughout t he colon with mild colonic wall thickening. The appendix is not identified as a discrete structure, h owever, no secondary findings of appendicitis are identified. Moderate multilevel lumbar degenerative changes. IMPRESSION: Mild colonic wall thickening is seen with fecal retention throughout could indicate a mi ld colitis. A limited non-contrast examination was performed as detailed.
[2023-10-23] MEDS ORDERED: NA CHLORIDE 0.9% 500 ML ONE (11:50)
[2023-10-23] MEDS ORDERED: NA CHLORIDE 0.9% 1,000 ML ONE (11:50)
--- NOTE | 2023-10-23 11:54 | RAD REPORT ---
EXAM DESCRIPTION: RAD - Chest Single View - 10/23/2023 11:42 am CLINICAL HISTORY: COUGH Chest pain. COMPARISON: Chest Pa And Lat (2 Views) dated 05/14/2018 FINDINGS: Portable technique limits examination quality. The lungs are emphysematous but grossly clear. The heart is normal in size. Old right posterior rib f ractures.Dual lead pacer/ defibrillator device is in place. IMPRESSION: No acute intrathoracic process suspected.
[2023-10-23 12:21] LABS: Specific Gravity 1.011 (1.005-1.030); Sqamous Epithelial <5 /HPF (None Seen); Urine Bacteria <20 /HPF (<20); Urine Bilirubin NEGATIVE (Negative); Urine Blood Negative (Negative); Urine Clarity Turbid (Clear); Urine Color Colorless (Yellow); Urine Culture Reflex Order REFLEXED; Urine Glucose NEGATIVE (Negative); Urine Ketones NEGATIVE (Negative); Urine Microscopic Reflex YN ORDER UMIC; Urine Mucus Slight /HPF (None Seen); Urine Nitrite NEGATIVE (Negative); Urine Protein NEGATIVE (Negative); Urine RBC <5 /HPF (None Seen); Urine Urobilinogen Normal (Normal); Urine pH 6.5 (5.0-7.0)
[2023-10-23 12:24] LABS: Blood Morphology Comment NOT SEEN (NOT SEEN); Platelet Estimate ADEQ; White Blood Cell Scan OK (OK)
[2023-10-23 12:32] LABS: Albumin 3.5 g/dL (3.4-5.0); Albumin/Globulin Ratio 1.2 (1.1-1.8); Anion Gap 8.2 mEq/L (5.0-15.0); Bilirubin Direct 0.1 mg/dL (0-0.2); Bilirubin Indirect, Calculated 0.2 mg/dL (0.2-0.8); Bilirubin Total 0.3 mg/dL (0.2-1.0); Magnesium 2.3 mg/dL (1.6-2.4); Potassium 4.2 mEq/L (3.5-5.1); Protein, Total 6.5 g/dL (6.4-8.2); Troponin High Sensitivity 40.5 pg/mL (<58.9)
--- NOTE | 2023-10-23 13:42 | ER ---
Nurse's Notes [facility] Name: Delphine Aldridge Age: 83 yrs Sex: Female : 1940 Arrival Date: 10/23/2023 Time: 10:44 Bed 4 Private MD: Diagnosis: UTI/ Urinary tract infection, site not specified;Weakness;Left sided colitis;Elevated white blood cell count Presentation: 10/22 10:56 Chief complaint: Patient states: "I was sent here by Dr. Verma from [facility] due to an mb9 ongoing UTI and C-Diff. I've been weak and my electrolytes are low.". Coronavirus screen: Vaccine status: Patient reports receiving the 2nd dose of the covid vaccine. Ebola Screen: No symptoms or risks identified at this time. Initial Sepsis Screen: Does the patient meet any 2 criteria? HR > 90 bpm. Does the patient have a suspected source of infection? No. Patient's initial sepsis screen is negative. Risk Assessment: Do you want to hurt yourself or someone else? Patient reports no desire to harm self or others. Onset of symptoms was October 23, 2023. 10:56 Method Of Arrival: Wheelchair mb9 10:56 Acuity: GRACIE 2 mb9 Historical: - Allergies: 10:59 No Known Allergies; mb9 - PMHx: 10:59 Alzheimer's disease; Anxiety; Atrial fibrillation; BRADYCARDIA; Congestive heart mb9 failure; Dementia; DYSPHAGIA; Glaucoma; Hypertensive disorder; Irritable bowel syndrome; Major Depressive Disorder; ventricular tachycardia; venous insufficiency; - PSHx: 10:59 section; Thyroidectomy; mb9 - Immunization history:: Adult Immunizations up to date. - Infectious Disease History:: CDIFF, . - Social history:: Smoking status: Patient denies any tobacco usage or history of. Assessment: 15:35 Reassessment: 2nd set of blood cultures obtained from right forearm at 15:05; patient mg7 tolerated well. Vital Signs: 10:56 BP 141 / 68; Pulse 96; Resp 18; Temp 98.4; Pulse Ox 100% on R/A; Weight 67.13 kg; mb9 Height 5 ft. 8 in. ; Pain 0/10; 11:21 BP 130 / 66 LA Supine (auto/reg); Pulse 74; Resp 13; Temp 98(O); Pulse Ox 98% on R/A; jg11 10:56 Body Mass Index 22.50 (67.13 kg, 172.72 cm) mb9 10:56 Pain Scale: Adult mb9 ED Course: 10:53 Patient arrived in ED. mg5 10:58 Triage completed. mb9 11:00 Vito Phillips MD is Attending Physician. anselmo 11:00 Arm band placed on. mb9 11:06 Yuliana Altamirano, RN is Primary Nurse. ld1 11:23 Inserted saline lock: 20 gauge in right antecubital area, using aseptic technique. jg11 Blood collected. 11:25 Initial lab(s) drawn, by ED staff, sent to lab. jg11 11:26 CT Abd/Pelvis - Without Contrast In Process Unspecified. EDMS 11:43 XRAY Chest (1 view) In Process Unspecified. EDMS 12:06 Urinalysis w/ reflexes Sent. ld1 12:09 Lab(s) recollected, by me, sent to lab. Urine collected: clean catch specimen, clear, jg11 EKG done, by ED staff. 13:40 Herber Paz is Hospitalizing Provider. anselmo 14:51 First set of blood cultures drawn by me. Inserted saline lock: 24 gauge in left wrist, ap3 using aseptic technique. 15:32 Placed in gown. Assisted to bedside commode. Cleaned of incontinence. Linen changed. jg11 15:33 Missed attempt(s): 22 gauge in left antecubital area. Bleeding controlled, band aid jg11 applied, catheter tip intact. Administered Medications: 12:05 Drug: NS 0.9% IV 1000 ml IV at 125 ml/hr continuous Route: IV; Rate: 125 ml/hr; Site: ld1 right antecubital; 12:06 Drug: NS 0.9% IV 500 ml IV at bolus continuous Route: IV; Rate: bolus; Site: right ld1 antecubital; 15:33 Drug: Cefepime IVPB 1 grams IVPB at 200 ml/hr once over 30 mins; (mix in NS 100 mL) mg7 Route: IVPB; Rate: 200 ml/hr; Infused Over: 30 mins; Site: right antecubital; Outcome: 13:42 Decision to Hospitalize by Provider. anselmo 16:01 Patient left the ED. rs5 Signatures: Dispatcher [employer] EDMS Vito Phillips MD MD anselmo Prokisch, Elvia, RN RN ap3 Yuliana Altamirano, RN RN ld1 Radha, Dinora Mayes, RN RN mb9 Edgardo Young, RN RN rs5 An Dupont5 Matt Little1 Hilda Sims RN RN mg7
--- NOTE | 2023-10-23 13:42 | EDPHYS ---
Physician Documentation [facility] Name: Delphine Aldridge Age: 83 yrs Sex: Female : 1940 Arrival Date: 10/23/2023 Time: 10:44 Bed 4 Private MD: MICHAEL Physician Vito Phillips HPI: 10/22 13:33 This 83 yrs old Female presents to ER via Wheelchair with complaints of Sent anselmo By Historical: - Allergies: 10:59 No Known Allergies; mb9 - PMHx: 10:59 Alzheimer's disease; Anxiety; Atrial fibrillation; BRADYCARDIA; Congestive heart mb9 failure; Dementia; DYSPHAGIA; Glaucoma; Hypertensive disorder; Irritable bowel syndrome; Major Depressive Disorder; ventricular tachycardia; venous insufficiency; - PSHx: 10:59 section; Thyroidectomy; mb9 - Immunization history:: Adult Immunizations up to date. - Infectious Disease History:: CDIFF, . - Social history:: Smoking status: Patient denies any tobacco usage or history of. ROS: 13:34 Constitutional: Negative for fever, chills, and weight loss, Eyes: Negative for injury, anselmo pain, redness, and discharge, ENT: Negative for injury, pain, and discharge, Neck: Negative for injury, pain, and swelling, Cardiovascular: Negative for chest pain, palpitations, and edema, Respiratory: Negative for shortness of breath, cough, wheezing, and pleuritic chest pain, Back: Negative for injury and pain, : Negative for injury, bleeding, discharge, and swelling, MS/Extremity: Negative for injury and deformity, Skin: Negative for injury, rash, and discoloration, Psych: Negative for depression, anxiety, suicide ideation, homicidal ideation, and hallucinations, Allergy/Immunology: Negative for hives, rash, and allergies, Endocrine: Negative for neck swelling, polydipsia, polyuria, polyphagia, and marked weight changes, Hematologic/Lymphatic: Negative for swollen nodes, abnormal bleeding, and unusual bruising, 13:34 Abdomen/GI: Positive for abdominal pain, nausea, 13:34 Neuro: Positive for weakness, Exam: 13:34 Constitutional: This is a well developed, well nourished patient who is awake, alert, anselmo and in no acute distress. Head/Face: Normocephalic, atraumatic. Eyes: Pupils equal round and reactive to light, extra-ocular motions intact. Lids and lashes normal. Conjunctiva and sclera are non-icteric and not injected. Cornea within normal limits. Periorbital areas with no swelling, redness, or edema. ENT: Nares patent. No nasal discharge, no septal abnormalities noted. Tympanic membranes are normal and external auditory canals are clear. Oropharynx with no redness, swelling, or masses, exudates, or evidence of obstruction, uvula midline. Mucous membranes moist. Neck: Trachea midline, no thyromegaly or masses palpated, and no cervical lymphadenopathy. Supple, full range of motion without nuchal rigidity, or vertebral point tenderness. No Meningismus. Chest/axilla: Normal chest wall appearance and motion. Nontender with no deformity. No lesions are appreciated. Cardiovascular: Regular rate and rhythm with a normal S1 and S2. No gallops, murmurs, or rubs. Normal PMI, no JVD. No pulse deficits. Respiratory: Lungs have equal breath sounds bilaterally, clear to auscultation and percussion. No rales, rhonchi or wheezes noted. No increased work of breathing, no retractions or nasal flaring. Abdomen/GI: Soft, non-tender, with normal bowel sounds. No distension or tympany. No guarding or rebound. No evidence of tenderness throughout. Back: No spinal tenderness. No costovertebral tenderness. Full range of motion. Female : Normal external genitalia. Skin: Warm, dry with normal turgor. Normal color with no rashes, no lesions, and no evidence of cellulitis. MS/ Extremity: Pulses equal, no cyanosis. Neurovascular intact. Full, normal range of motion. Neuro: Awake and alert, GCS 15, oriented to person, place, time, and situation. Cranial nerves II-XII grossly intact. Motor strength 5/5 in all extremities. Sensory grossly intact. Cerebellar exam normal. Normal gait. Psych: Awake, alert, with orientation to person, place and time. Behavior, mood, and affect are within normal limits. 13:34 ECG was reviewed by the Attending Physician. Vital Signs: 10:56 BP 141 / 68; Pulse 96; Resp 18; Temp 98.4; Pulse Ox 100% on R/A; Weight 67.13 kg; mb9 Height 5 ft. 8 in. ; Pain 0/10; 11:21 BP 130 / 66 LA Supine (auto/reg); Pulse 74; Resp 13; Temp 98(O); Pulse Ox 98% on R/A; jg11 10:56 Body Mass Index 22.50 (67.13 kg, 172.72 cm) mb9 10:56 Pain Scale: Adult mb9 MDM: 11:00 Patient medically screened. [facility] 13:36 Differential Diagnosis sepsis. Differential diagnosis: bowel obstruction, anselmo diverticulitis, gastritis, gastroesophageal reflux disease, Irritable bowel syndrome, Mesenteric ischemia or infarction, non-specific abd pain, pancreatitis, Perf. Duodenal Ulcer, Peritonitis, Pyelonephritis, Ureterolithiasis, urinary tract infection. Data reviewed: vital signs, nurses notes, lab test result(s), EKG, radiologic studies, CT scan, plain films. Consideration of Admission/Observation Patient was admitted/placed on observation. Escalation of care including admission/observation considered. I considered the following discharge prescriptions or medication management in the emergency department Medications were administered in the Emergency Department. See MAR. Independent interpretation of the following test(s) in the Emergency Department EKG: See my EKG interpretation above. Test considered but Not performed:. Historians other than the Patient: Spouse/Significant Other: well informed. Care significantly affected by the following chronic conditions: Hypertension, Congestive Heart Failure, Obesity, Chronic Kidney Disease. Counseling: I had a detailed discussion with the patient and/or guardian regarding the historical points, exam findings, and any diagnostic results supporting the discharge/admit diagnosis, lab results, radiology results, the need for further work-up and treatment in the hospital. 10/22 11:01 Order name: Basic Metabolic Panel; Complete Time: 13:26 [facility] 10/22 11:01 Order name: CBC with Diff; Complete Time: 13:26 10/22 11:01 Order name: LFT's; Complete Time: 13:26 10/22 11:01 Order name: Magnesium; Complete Time: 13:26 10/22 11:01 Order name: NT PRO-BNP; Complete Time: 13:26 10/22 11:01 Order name: PT-INR; Complete Time: 13:26 10/22 11:01 Order name: Troponin HS; Complete Time: 13:26 10/22 11:01 Order name: Lipase; Complete Time: 13:26 anselmo 10/22 11:01 Order name: CDIFF [facility] 10/22 11:01 Order name: Fecal Leukocyte Stain [facility] 10/22 11:01 Order name: Stool Culture [facility] 10/22 11:01 Order name: Urinalysis w/ reflexes; Complete Time: 13:26 anselmo 10/22 11:38 Order name: CBC Smear Scan; Complete Time: 13:26 EDMS 10/22 12:25 Order name: Urine Culture EDMS 10/22 13:33 Order name: Blood Culture Adult (2) [facility] 10/22 13:33 Order name: Lactate w/ 2H reflex if indic. [facility] 10/22 14:42 Order name: T4 Free EDMS 10/22 14:42 Order name: Thyroid Stimulating Hormone EDMS 10/22 14:42 Order name: Basic Metabolic Panel EDMS 10/22 14:42 Order name: Basic Metabolic Panel EDMS 10/22 14:42 Order name: Basic Metabolic Panel EDMS 10/22 14:42 Order name: Basic Metabolic Panel EDMS 10/22 14:42 Order name: Basic Metabolic Panel EDMS 10/22 14:42 Order name: Basic Metabolic Panel EDMS 10/22 14:42 Order name: CBC with Automated Diff EDMS 10/22 14:42 Order name: CBC with Automated Diff EDMS 10/22 14:42 Order name: CBC with Automated Diff EDMS 10/22 14:42 Order name: CBC with Automated Diff EDMS 10/22 14:42 Order name: CBC with Automated Diff EDMS / 14:42 Order name: CBC with Automated Diff EDMS / 14:42 Order name: Lipid Profile EDMS 10/22 14:42 Order name: Lipid Profile EDMS 10/22 14:42 Order name: Magnesium EDMS 10/22 14:42 Order name: Magnesium EDMS 10/22 14:42 Order name: Magnesium EDMS 10/22 14:42 Order name: Magnesium EDMS 10/22 14:42 Order name: Magnesium EDMS 10/22 14:42 Order name: Magnesium EDMS 10/22 14:42 Order name: Phosphorus EDMS / 14:42 Order name: Phosphorus EDMS 10/22 14:42 Order name: Phosphorus EDMS 10/22 14:42 Order name: Phosphorus EDMS 10/22 14:42 Order name: Phosphorus EDMS 10/22 14:42 Order name: Phosphorus EDMS 10/22 11:01 Order name: XRAY Chest (1 view); Complete Time: 13:26 [facility] 10/22 11:01 Order name: CT Abd/Pelvis - Without Contrast; Complete Time: 13:26 [facility] 10/22 11:01 Order name: EKG; Complete Time: 11:02 [facility] 10/22 14:42 Order name: CONS Physician Consult [facility] 10/22 14:42 Order name: Physical Therapy Consult [facility] 10/22 14:42 Order name: Speech Therapy Consult [facility] 10/22 11:01 Order name: Cardiac monitoring; Complete Time: 12:06 [facility] 10/22 11:01 Order name: EKG - Nurse/Tech; Complete Time: 12:06 [facility] 10/22 11:01 Order name: IV Saline Lock; Complete Time: 11:33 [facility] 10/22 11:01 Order name: Labs collected and sent; Complete Time: 11:33 [facility] 10/22 11:01 Order name: O2 Per Protocol; Complete Time: 11: [facility] 10/22 11:01 Order name: O2 Sat Monitoring; Complete Time: 11: [facility] 10/22 11:32 Order name: Labs - recollect needed: recollect green top; Complete Time: 12:05 bd EC:34 Rate is 86 beats/min. Rhythm is regular. QRS [place] is Normal. IA interval is normal. QRS anselmo interval is normal. QT interval is normal. No Q waves. T waves are Normal. T waves are Inverted in leads II, III, aVF, V4, V5, V6. No ST changes noted. Clinical impression: NSR w/ Non-specific ST/T Changes and No evidence of ischemia. Interpreted by me. Reviewed by me. Administered Medications: 12:05 Drug: NS 0.9% IV 1000 ml IV at 125 ml/hr continuous Route: IV; Rate: 125 ml/hr; Site: ld1 right antecubital; 12:06 Drug: NS 0.9% IV 500 ml IV at bolus continuous Route: IV; Rate: bolus; Site: right ld1 antecubital; 15:33 Drug: Cefepime IVPB 1 grams IVPB at 200 ml/hr once over 30 mins; (mix in NS 100 mL) mg7 Route: IVPB; Rate: 200 ml/hr; Infused Over: 30 mins; Site: right antecubital; Disposition Summary: 10/23/23 13:42 Hospitalization Ordered Notes: Hospitalization Status: Inpatient Admission [facility] Provider: Herber Paz cha Location: Telemetry/MedSur (Inpatient) anselmo Condition: Fair anselmo Problem: new anselmo Symptoms: have improved anselmo Bed/Room Type: Standard [facility] Room Assignment: 401(10/23/23 15:05) bd Diagnosis - UTI/ Urinary tract infection, site not specified anselmo - Weakness anselmo - Left sided colitis anselmo - Elevated white blood cell count anselmo Forms: - Medication Reconciliation Form anselmo - SBAR form anselmo - Leadership Thank You Letter [facility] Signatures: Dispatcher [employer] EDMS Zina Stout Corey, MD MD cha Sims, Lauren RN RN ld1 Radha, Dinora Mayes, RN RN mb9 Hilda Sims RN RN mg7 Corrections: (The following items were deleted from the chart) 11:02 11:02 BASIC METABOLIC PANEL+C.LAB.BRZ ordered. EDMS EDMS 11:02 11:02 CBC+H.LAB.BRZ ordered. EDMS EDMS 11: 11:02 HEPATIC FUNCTION+C.LAB.BRZ ordered. EDMS EDMS 11: 11:02 MAGNESIUM+C.LAB.BRZ ordered. EDMS EDMS 11: 11:02 PROBNP+C.LAB.BRZ ordered. EDMS EDMS 11:02 11:02 PROTIME (+INR)+COAG.LAB.BRZ ordered. EDMS EDMS 11:02 11:02 Troponin High Sensitivity+C.LAB.BRZ ordered. EDMS EDMS 11:02 11:02 LIPASE+C.LAB.BRZ ordered. EDMS EDMS 11:02 11:02 C.difficile GDH Ag \T\ Toxin AB+LAB.BRZ ordered. EDMS EDMS 11:02 11:02 Fecal Leukocyte Stain+BA.LAB.BRZ ordered. EDMS EDMS 11: 11:02 Stool Culture+BA.LAB.BRZ ordered. EDMS EDMS 11:02 11:02 Urinalysis+U.LAB.BRZ ordered. EDMS EDMS 15:05 13:42 anselmo bd
[2023-10-23] MEDS ORDERED: NA CHLORIDE 0.9% 100 ML ONE (13:57)
[2023-10-23] MEDS ORDERED: FAMOTIDINE 20 MG/2 ML VIAL IV ONE (13:57)
[2023-10-23] MEDS ORDERED: CEFEPIME 1 GM/VIAL ONE (13:58)
[2023-10-23] MEDS ORDERED: ACETAMINOPHEN 500 MG TAB PO PRN (14:32)
--- NOTE | 2023-10-23 14:57 | P.HP ---
Certification for Inpatient Patient admitted to: Inpatient With expected LOS: >2 Midnights Patient will require the following post-hospital care: None Practitioner: I am a practitioner with admitting privileges, knowledge of patient current condition, hospital course, and medical plan of care. Services: Services provided to patient in accordance with Admission requirements found in Title 42 Section 412.3 of the Code of Federal Regulations Patient History Date of Service: 10/23/23 Reason for admission: Complicated UTI History of Present Illness: Delphine Aldridge is a 63 year old female with Pmhx Alzheimer's disease, anxiety, atrial fibrillation, bradycardia, congestive heart failure, Cardiac arrest, nonischemic cardiomyopathy, dementia, dysphagia, glaucoma, hypertensive disorder, IBS, major depressive disorder, ventricular tachycardia, venous insufficiency, who presents to the ED with chief complaint of weakness. is at bedside and is good historian, he reports she had visited her primary care for physician and instructed to come to the ED. Her PCP reported lab results showing C. difficile was still active and a UTI present. Of note, She prefers to be called Alyce. Initial vitals BP 141 / 68; Pulse 96; Resp 18; Temp 98.4; Pulse Ox 100% on R/A Laboratory evaluation WBC 15.3, sodium 134, BNP 2342, lipase 39, troponin 40.5 Alyce will be admitted to hospitalist service for further evaluation and treatment of complicated UTI and C. difficile. Allergies No Known Allergies Allergy (Unverified 09/13/23 21:57) Home Medications: Acetaminophen 2 tab PO Q6H PRN 09/14/23 Apixaban [Eliquis] 5 mg PO BID 09/14/23 Ascorbic Acid 500 mg PO DAILY 09/14/23 Budesonide [Budesonide EC] 3 mg PO BID 09/14/23 Cholecalciferol (Vitamin D3) [Vitamin D3] 50 mcg PO DAILY 09/14/23 Cyanocobalamin [Vitamin B-12*] 1,000 mcg PO DAILY 09/14/23 Duloxetine HCl 30 mg PO DAILY 09/14/23 Estradiol Vaginal Insert 1 gm VAG SEECOM 09/14/23 Furosemide [Lasix*] 20 mg PO SEECOM PRN 09/14/23 Galantamine HBr [Galantamine ER] 8 mg PO BID 09/14/23 Latanoprost 0.005% Eye Drops 1 gtt EACH EYE BEDTIME 09/14/23 Levothyroxine Sodium [Synthroid] 150 mcg PO DAILY 09/14/23 Losartan Potassium [Cozaar] 25 mg PO DAILY 09/14/23 Magnesium Oxide [Magnesium] 400 mg PO BID 09/14/23 Memantine HCl [Namenda*] 10 mg PO DAILY 09/14/23 Potassium Chloride [Klor-Con 10] 10 meq PO DAILY 09/14/23 Pyridoxine HCl (Vitamin B6) [Pyridoxine HCl] 50 mg PO DAILY 09/14/23 Spironolactone [Aldactone] 50 mg PO DAILY 09/14/23 Zinc 50 Mg 50 mg PO DAILY 09/14/23 Doxycycline Hyclate 100 mg PO BID #18 09/17/23 Vancomycin HCl 125 mg PO QID #71 cap 09/17/23 predniSONE [Deltasone] 20 mg PO DAILY #5 tab 09/18/23 - Past Medical/Surgical History -: C. difficile colitis -: Nonischemic cardiomyopathy with an ejection fraction of 40 to 45% -: Hypertension -: Overactive bladder -: Chronic kidney disease stage III -: Collagenous colitis -: Alzheimer's dementia -: Atrial fibrillation -: Ventricular fibrillation/ventricular tachycardia cardiac arrest -: ICD placement on August 27 -: -: Cochlear implant -: D&C -: EGD -: Total hip arthroplasty -: Total knee arthroplasty -: NAZARIO - Social History Alcohol use: No CD- Drugs: No Caffeine use: No Review of Systems General: Weakness Gastrointestinal: Nausea, Abdominal Pain Physical Examination - Physical Exam General: Alert, In no apparent distress, Oriented x2 HEENT: Atraumatic, Normocephalic, PERRLA Neck: Supple, 2+ carotid pulse no bruit, JVD not distended Respiratory: Clear to auscultation bilaterally, Normal air movement Cardiovascular: No edema, Normal pulses, Regular rate/rhythm, Normal S1 S2, Diastolic murmur Capillary refill: <2 Seconds Gastrointestinal: Hypoactive, Soft and benign, Tenderness Musculoskeletal: No clubbing, No contractures Integumentary: No rashes Neurological: Normal speech, Normal tone - Studies Laboratory Data (last 24 hrs) 10/23/23 10/23/23 10/23/23 12:01 11:17 11:17 WBC 15.30 H Hgb 11.8 L Hct 35.9 L Plt Count 268 PT 17.0 H INR 1.57 Sodium 134 L Potassium 4.2 BUN 40 H Creatinine 1.45 H Glucose 100 Magnesium 2.3 Total Bilirubin 0.3 AST 15 ALT 19 Alkaline Phosphatase 63 Lipase 39 Assessment and Plan - Plan Assessment and plan Complicated recurrent UTI Recurrent episode Clostridium difficile failed p.o. vancomycin Cefepime given in the ED Rocephin Stool cultures pending, UA culture pending, blood cultures pending IV fluids given in the ED, will hold with history of CHF Infectious disease consulted-recommend Rocephin, lactobacillus, and Fidaxomicin if Cdiff positive on stool study ALVARO BUN/creatinine 40/1.45, GFR 36 Consulted nephrology,Dr. Mcmahan History of CHF History of A-fib history of cardiac arrest History of nonischemic cardiomyopathy Continuous telemetry BNP 2342, IV fluids given in the ED Continue Eliquis restart home medications when available and appropriate Weakness/debilitated Decreased p.o. 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
[2023-10-23 16:21] LABS: Thyroid Stimulating Hormone 5.86 uIU/mL (0.358-3.740)
[2023-10-23 17:00] VITALS: BMI 20.9
[2023-10-23] MEDS ORDERED: HEPARIN 5000 UNIT/ML 1 ML VIAL SQ SCH (17:00)
[2023-10-23] MEDS ORDERED: CEFEPIME 1 GM in NA CHLORIDE 0.9% 100 ML IV SCH (21:00)
[2023-10-23] MEDS: CEFTRIAXONE 1,000 MG in NA CHLORIDE 0.9% 50 ML IVPB SCH (22:40)
[2023-10-23] MEDS: APIXABAN 5 MG TABLET PO SCH (22:41)
[2023-10-24 07:21] LABS: Absolute Basophils 0.1 K/uL (0-0.5); Absolute Lymphocytes (CBC) 1.9 K/uL (0.7-4.9); Absolute Neutrophil 9.8 K/uL (1.8-8.0); Basophils % 0.4 % (0-1.3); Eosinophils % 0.3 % (0-4.4); Hematocrit 31.7 % (36.0-45.0); Hemoglobin 10.5 g/dL (12.0-15.0); Lymphocytes % 14.8 % (15.3-44.8); MCH 32.4 pg (27.0-35.0); MCV 98.1 fL (80-100); MPV 7.8 fL (7.6-11.3); Monocytes % 7.8 % (3.3-12.3); Neutrophils % 76.7 % (41.7-73.7); Platelets 245 thou/uL (152-406); RBC Red Blood Cell Count 3.23 M/uL (3.86-4.86); Red Cell Distribution Width 17.5 % (12.1-15.2)
[2023-10-24 07:43] LABS: Anion Gap 6.9 mEq/L (5.0-15.0); Magnesium 2.1 mg/dL (1.6-2.4); Phosphorus 1.8 mg/dL (2.5-4.9); Potassium 3.9 mEq/L (3.5-5.1)
[2023-10-24] MEDS: LACTOBACILLUS/ACIDOPHILUS TAB PO SCH (09:24)
--- NOTE | 2023-10-24 11:04 | P.CNS ---
Date of Consult: 10/24/23 (INFECTIOUS DISEASE) Reason for Consult: c.diff, UTI Chief Complaint: Complicated UTI History of Present Illness: Patient is an 83 yo female with a past medical history as listed below who was sent to the ED by her PCP due to reported lab results positive for C.diff and Urinary Tract Infection. Blood cultures and urinalysis obtained in ED. Patient started on empiric Rocephin. Infectious disease consulted. Allergies No Known Allergies Allergy (Unverified 09/13/23 21:57) Home medications list reviewed: Yes Home Medications: Apixaban [Eliquis] 5 mg PO BID 09/14/23 Ascorbic Acid 500 mg PO DAILY 09/14/23 Cholecalciferol (Vitamin D3) [Vitamin D3] 50 mcg PO DAILY 09/14/23 Cyanocobalamin [Vitamin B-12*] 1,000 mcg PO DAILY 09/14/23 Duloxetine HCl 30 mg PO DAILY 09/14/23 Estradiol Vaginal Insert 1 gm VAG SEECOM 09/14/23 Furosemide [Lasix*] 20 mg PO SEECOM PRN 09/14/23 Galantamine HBr [Galantamine ER] 8 mg PO BID 09/14/23 Levothyroxine Sodium [Synthroid] 150 mcg PO DAILY 09/14/23 Losartan Potassium [Cozaar] 100 mg PO DAILY 09/14/23 Magnesium Oxide [Magnesium] 400 mg PO BID 09/14/23 Memantine HCl [Namenda*] 10 mg PO DAILY 09/14/23 Potassium Chloride [Klor-Con 10] 10 meq PO DAILY 09/14/23 Pyridoxine HCl (Vitamin B6) [Pyridoxine HCl] 50 mg PO DAILY 09/14/23 Spironolactone [Aldactone] 50 mg PO DAILY 09/14/23 Zinc 50 Mg 100 mg PO DAILY 09/14/23 Bimatoprost [Lumigan] 0.01 % EACH EYE BEDTIME 10/24/23 Diclofenac Sodium [Voltaren] 4 gm TP QID 10/24/23 Fluticasone Propionate 1 spray NS DAILY 10/24/23 L. Acidophilus/Pectin, [place] [Acidophilus-Pectin Captab] 1 each PO DAILY 10/24/23 Pantoprazole Sodium [Protonix] 40 mg PO DAILY 10/24/23 - Past Medical/Surgical History Diabetic: No -: C. difficile colitis -: Nonischemic cardiomyopathy with an ejection fraction of 40 to 45% -: Hypertension -: Overactive bladder -: Chronic kidney disease stage III -: Collagenous colitis -: Alzheimer's dementia -: Atrial fibrillation -: Ventricular fibrillation/ventricular tachycardia cardiac arrest -: ICD placement on August 27 -: -: Cochlear implant -: D&C -: EGD -: Total hip arthroplasty -: Total knee arthroplasty -: NAZARIO - Social History Alcohol use: No CD- Drugs: No Caffeine use: No Place of Residence: Home Review of Systems General: Weakness Gastrointestinal: Abdominal Pain Physical Examination Temp Pulse Resp BP Pulse Ox 97.6 F 79 16 136/63 98 10/24/23 08:00 10/24/23 08:00 10/24/23 08:00 10/24/23 08:00 10/24/23 08:00 General: In no apparent distress, Demented, Confused HEENT: Atraumatic, Other (hearing loss) Respiratory: Clear to auscultation bilaterally, Normal air movement, Other (room air) Cardiovascular: No edema, Irregular heart rate/rhythm Gastrointestinal: Normal bowel sounds, Tenderness Integumentary: No rashes Laboratory Data - Reviewed Microbiology Data - Reviewed Imagings Data: - Reviewed Conclusions/Impression: Problem List Acute Cystitis C.difficile Colitis Chronic Kidney Disease III Atrial Fibrillation Congestive Heart Failure Hypertension Alzheimer's Disease Acute Cystitis, Recurrent According to report, the patient's PCP noted positive C.diff and Urinary Tract Infection - Urine culture 10/22: mixed marixa; colony count <10,000 CFU/mL - recent history Klebsiella oxytoca in urine 09/13/23 - Blood cultures 10/22: pending - Currently on Rocephin (started 10/22-) Abdominal Pain Recent history of C.difficile infection - CT abdomen pelvis 10/22: " Mild colonic wall thickening is seen with fecal retention throughout could indicate a mild colitis." - C.diff Ag & toxin 10/22: pending - previous positive toxin and antigen on 09/13/23; treated with Vancomycin PO x 10 days Leukocytosis improving (WBC 15.3 -> 12.8) Afebrile Recommendations - Cystitis: Continue Rocephin for now. - Follow up with C.diff results: consider start on Fidaxomicin PO x 10 days - Continue probiotic - Monitor CBC and BMP - Nutritional supplementation Case discussed with Dr. Chavez NRiccardo
[2023-10-24] MEDS: POTASS/SODIUM PHOSPHATE 1 PKT POWD.PACK PO SCH ×2 (13:00→17:05)
--- NOTE | 2023-10-24 13:28 | CON ---
Date of Consultation: 10/24/2023 Reason For Consultation: Elevated BUN and creatinine. History Of Present Illness: This is a pleasant 83-year-old female. All the information has been obt ained from the by bedside as the patient has dementia. The patient has Alzheimer's dementia, congestive heart failure, atrial fibrillation, status post ICD back in August 2023. The patient w as in her regular state of health, came to the hospital complaining from weakness and fatigue, found to have UTI and elevation in BUN and creatinine. For that reason, we have been consulted. The patie nt denied taking any nonsteroidal. No IV contrast over the night. The patient was treated, kidney f unction gradually improving. Past Medical History: 1.Hypertension. 2.Hyperlipidemia. 3.Nonischemic cardiomyopathy with ejection fraction of 40%. 4.Alzheimer. 5.Atrial fibrillation. Past Surgical History: Include ICD placement, , colon implant, EGD, hip arthroplasty, knee arthroplasty, and NAZARIO. Social History: Denied smoking. Denied drinking. Denied drugs abuse. Lives with the . Allergies: NO KNOWN DRUGS ALLERGY. Current Medications: Include Tylenol, Eliquis, vitamin C, cholecalciferol, estradiol, Lasix 20, losa rtan, levothyroxine, KCl, Namenda, doxycycline, vancomycin, and prednisone. Review of Systems: Head and Neck: No red eye. No ear pain. GI: Has decreased intake. : No polyuria. Has dysuria. GARMENT INSPECTOR: No vaginal discharge. Respiratory: No shortness of breath. Cardiovascular: No chest pain. Endocrine: No polydipsia. Skin: No rash. Neuro: The patient has Alzheimer, confused. Musculoskeletal: No weakness. Social History: Denied smoking. Denied drinking. Denied drugs abuse. Physical Examination: Vital Signs: When I saw the patient, blood pressure 139/63, pulse of 83, afebrile. Chest: Clear to auscultation. Heart: S1, S2 regular. Abdomen: Soft, nontender. Extremities: No edema. Neurologic: Alert. No focality. Laboratory Data: WBC 12.8, hemoglobin 10.5. Yesterday creatinine 1.4. GFR of 36. Today, sodium 13 6, potassium 3.9, bicarb 26, BUN 34, creatinine 1.1, calcium 8.3, phosphorus 1.8, magnesium 2.1. TSH 5.8. Urinalysis positive for infection, wbc 20. Urine culture still pending. Current Medications: The patient is on include ceftriaxone, Eliquis, Tylenol. Assessment And Plan: 1.Acute kidney injury. Obstructive uropathy has been ruled out with the finding of the CT mostly se condary to prerenal secondary to dehydration, secondary to the GI loss superimposed with toxic ATN se condary to UTI, on the recovery phase, superimposed with ARB. I agree with holding ARB, holding the diuresis, the patient is euvolemic. Keep holding any IV fluid for the time being and we will follow up. 2.Hypertension, controlled, optimal with the presence of acute kidney injury. Hold diuresis. Hold losartan. 3.UTI, complicated. We will continue current antibiotic. Follow up culture. 4.Hyponatremia, depletional. We will monitor. No need for supplement. 5.Hypophosphatemia. We will supplement. HAILEY Voice ID: [id number] Report ID: [id number]
--- NOTE | 2023-10-24 15:41 | EKG ---
Test Date: 2023-10-23 Test Time: 12:03:59 Transitional Nurse: JOSLYN MEASUREMENT RESULTS: Intervals: Rate: 86 MO: 228 QRSD: 118 QT: 382 QTc: 457 [place]: P: 78 MO: 228 QRS: 75 T: 153 INTERPRETIVE STATEMENTS: Sinus rhythm with 1st degree AV block Septal infarct, age undetermined ST & T wave abnormality, consider lateral ischemia Abnormal ECG Compared to ECG 09/13/2023 11:59:58 ST (T wave) deviation now present T-wave abnormality no longer present Myocardial infarct finding still present Possible ischemia still present Electronically Signed On 10-24-23 15:39:19 CDT by Cezar Drake
[2023-10-24] MEDS ORDERED: LACTOBACILLUS/ACIDOPHILUS TAB PO SCH (17:00)
--- NOTE | 2023-10-24 17:47 | P.PN ---
Date of Service: 10/24/23 Subjective Awake with family at bedside Feeling well but forgetful of the events yesterday No new complaints ROS 10 point ROS as noted above, otherwise negative Physical Exam General:AAOx2, NAD, calm and cooperative HEENT: Atraumatic, Normocephalic, PERRLA Neck: Supple, 2+ carotid pulse no bruit, JVD not distended Respiratory: Clear to auscultation bilaterally, Normal air movement Cardiovascular: No edema, Normal pulses, Regular rate/rhythm, Normal S1 S2, Diastolic murmur Capillary refill: <2 Seconds Gastrointestinal: Soft and benign on palpation, Tenderness, nondistended, bowel sounds present Musculoskeletal: No clubbing, No contractures, 2+ peripheral pulses Integumentary: No rashes Neurological: Normal speech, Normal tone Vitals Reviewed Problem list Complicated recurrent UTI Recurrent episode Clostridium difficile failed p.o. vancomycin ALVARO History of CHF History of A-fib history of cardiac arrest History of nonischemic cardiomyopathy Weakness/debilitated Decreased p.o. intake History of dysphagia Assessment and Plan Complicated recurrent UTI Recurrent episode Clostridium difficile failed p.o. vancomycin Leukocytosis WBC 15.3, 12.8 Cefepime given in the ED Rocephin Stool cultures pending, UA culture mixed marixa, blood cultures NGTD IV fluids given in the ED, will hold with history of CHF Infectious disease consulted-recommend Rocephin, lactobacillus, and Fidaxomicin if Cdiff positive on stool study ALVARO BUN/creatinine 34/1.11, GFR 50 Consulted nephrology,Dr. Malone History of CHF History of A-fib history of cardiac arrest History of nonischemic cardiomyopathy Continuous telemetry BNP 2342, IV fluids given in the ED Continue Eliquis Lasix home dose- hold per Nephrology Weakness/debilitated Decreased p.o. intake History of dysphagia RN SECURITY consulted- recommends thin liquids, small bites/sips, alternate solids/liquids, remain upright after meal Dietary consulted- Calorie count initiated Physical therapy consulted- no further PT needed, she is at baseline DVT PPx Eliquis Full code LOS 2 to 3 days
[2023-10-24] MEDS ORDERED: FUROSEMIDE 20 MG TABLET PO PRN (17:58)
[2023-10-24] MEDS: PANTOPRAZOLE 40MG TABLET PO SCH (21:00)
[2023-10-24] MEDS: DULOXETINE 30 MG CAP PO SCH (21:00)
[2023-10-24] MEDS: LOSARTAN POTASSIUM 50 MG TABLET PO SCH (23:20)
[2023-10-24] MEDS: CEFTRIAXONE 1000 MG/VIAL ONE (23:21)
[2023-10-25 03:24] VITALS: O2SAT 97
[2023-10-25] MEDS: LEVOTHYROXINE SOD 0.075 MG TAB PO SCH (05:49)
[2023-10-25 06:59] LABS: Absolute Eosinophils 0.1 K/uL (0-0.5); Absolute Lymphocytes (CBC) 0.9 K/uL (0.7-4.9); Absolute Monocytes 0.6 K/uL (0.1-1.3); Absolute Neutrophil 5.3 K/uL (1.8-8.0); Basophils % 0.6 % (0-1.3); Eosinophils % 0.8 % (0-4.4); Hematocrit 30.2 % (36.0-45.0); Lymphocytes % 13.5 % (15.3-44.8); MCH 32.5 pg (27.0-35.0); MCV 98.6 fL (80-100); MPV 7.6 fL (7.6-11.3); Monocytes % 8.7 % (3.3-12.3); Neutrophils % 76.4 % (41.7-73.7); Platelets 218 thou/uL (152-406); RBC Red Blood Cell Count 3.07 M/uL (3.86-4.86); Red Cell Distribution Width 17.4 % (12.1-15.2)
[2023-10-25 07:14] LABS: Anion Gap 7.1 mEq/L (5.0-15.0); Magnesium 1.9 mg/dL (1.6-2.4); Phosphorus 2.6 mg/dL (2.5-4.9); Potassium 4.1 mEq/L (3.5-5.1)
--- NOTE | 2023-10-25 07:54 | P.PN ---
Date of Service: 10/25/23 Subjective ROS 10 point ROS as noted above, otherwise negative Physical Exam General:AAOx2, NAD, calm and cooperative HEENT: Atraumatic, Normocephalic, PERRLA Neck: Supple, 2+ carotid pulse no bruit, JVD not distended Respiratory: Clear to auscultation bilaterally, Normal air movement Cardiovascular: first-degree heart block, Normal S1 S2, Diastolic murmur Capillary refill: <2 Seconds Gastrointestinal: Soft and benign on palpation, Tenderness, nondistended, bowel sounds present Musculoskeletal: No clubbing, No contractures, 2+ peripheral pulses Integumentary: No rashes Neurological: Normal speech, Normal tone Vitals Reviewed Problem list Complicated recurrent UTI Recurrent episode Clostridium difficile failed p.o. vancomycin ALVARO History of CHF History of A-fib history of cardiac arrest History of nonischemic cardiomyopathy Weakness/debilitated Decreased p.o. intake History of dysphagia Assessment and Plan Complicated recurrent UTI Recurrent episode Clostridium difficile failed p.o. vancomycin Leukocytosis WBC 15.3, 12.8, 6.90 Cefepime given in the ED Rocephin Stool cultures pending, UA culture mixed marixa, blood cultures NGTD IV fluids given in the ED, will hold with history of CHF Infectious disease consulted-recommend Rocephin, lactobacillus, and Fidaxomicin if Cdiff positive on stool study ALVARO BUN/creatinine 25/1.00, GFR 57 Consulted nephrology,Dr. Malone History of CHF History of A-fib history of cardiac arrest History of nonischemic cardiomyopathy Continuous telemetry BNP 2342, IV fluids given in the ED Continue Eliquis Lasix home dose- hold per Nephrology Weakness/debilitated Decreased p.o. intake History of dysphagia ASSOCIATE FIELD SERVICE ENGINEER consulted- recommends thin liquids, small bites/sips, alternate solids/liquids, remain upright after meal Dietary consulted- Calorie count initiated Physical therapy consulted- no further PT needed, she is at baseline DVT PPx Eliquis Full code LOS 2 to 3 days
[2023-10-25] MEDS ORDERED: HOME MED 1 EA UNK (Losartan Potassium [Cozaar] 25 MG Tablet) PO SCH (09:00)
[2023-10-25] MEDS ORDERED: HOME MED 1 EA UNK (Levothyroxine Sodium [Synthroid] 150 MCG Tablet) PO SCH (09:00)
--- NOTE | 2023-10-25 09:12 | P.PN ---
Date of Service: 10/25/23 Infectious Disease Progress Note Chief Complaint: Complicated UTI Subjective: NAD. No acute events overnight. Improving. Physical Examination Temp Pulse Resp BP Pulse Ox 98.4 F 78 16 172/75 H 99 10/25/23 08:00 10/25/23 08:00 10/25/23 08:00 10/25/23 08:00 10/25/23 08:00 General: In no apparent distress. Oriented x2. HEENT: Atraumatic. Respiratory: Clear to auscultation bilaterally, Normal air movement. Room air. Cardiovascular: Irregular rhythm. No edema. Gastrointestinal: Normal bowel sounds. Soft. Non-distended. Non-tender. Integumentary: No rashes Laboratory Data - Reviewed Microbiology Data - Reviewed Imagings Data: - Reviewed Medications List: Reviewed Assessment and Plan Problem List Acute Cystitis C.difficile Colitis Chronic Kidney Disease III Atrial Fibrillation Congestive Heart Failure Hypertension Alzheimer's Disease Acute Cystitis, Recurrent According to report, the patient's PCP noted positive C.diff and Urinary Tract Infection - Urine culture 10/22: mixed marixa; colony count <10,000 CFU/mL - recent history Klebsiella oxytoca in urine 09/13/23 - Blood cultures 10/22: no growth to date - Currently on Rocephin (started 10/22-) Abdominal Pain Recent history of C.difficile infection - CT abdomen pelvis 10/22: " Mild colonic wall thickening is seen with fecal retention throughout could indicate a mild colitis." - C.diff Ag & toxin 10/22: pending - previous positive toxin and antigen on 09/13/23; treated with Vancomycin PO x 10 days Leukocytosis resolved. Afebrile Recommendations - Cystitis: Continue antibiotic therapy x 7 days. Currently on Rocephin day 3. Consdier switch to oral cefpodoxime upon discharge to complete remainder of antibiotic course. - Follow up with C.diff results: consider start on Fidaxomicin PO x 10 days if positive. - Continue probiotic - Monitor CBC and BMP - Nutritional supplementation - follow up with PCP as outpatient Case discussed with Dang Decker
[2023-10-25] MEDS: FIDAXOMICIN 200 MG TABLET PO SCH (10:37)
[2023-10-25 13:28] VITALS: BP 148/70; TEMP 98.7
--- NOTE | 2023-10-25 14:31 | P.DS ---
Admission Date: 10/23/23 Discharge Date: 10/25/23 Disposition: DC HOME/HOME HEALTH CARE Discharge Condition: GOOD Reason for Admission: Complicated UTI Brief History of Present Illness: Delphine Aldridge is a 63 year old female with Pmhx Alzheimer's disease, anxiety, atrial fibrillation, bradycardia, congestive heart failure, Cardiac arrest, nonischemic cardiomyopathy, dementia, dysphagia, glaucoma, hypertensive disorder, IBS, major depressive disorder, ventricular tachycardia, venous insufficiency, who presents to the ED with chief complaint of weakness. is at bedside and is good historian, he reports she had visited her primary care for physician and instructed to come to the ED. Her PCP reported lab results showing C. difficile was still active and a UTI present. Of note, She prefers to be called Alyce. Initial vitals BP 141 / 68; Pulse 96; Resp 18; Temp 98.4; Pulse Ox 100% on R/A Laboratory evaluation WBC 15.3, sodium 134, BNP 2342, lipase 39, troponin 40.5 Alyce will be admitted to hospitalist service for further evaluation and treatment of complicated UTI and C. difficile. Vital Signs/Physical Exam: Temp Pulse Resp BP Pulse Ox 98.7 F 76 16 148/70 H 99 10/25/23 12:00 10/25/23 12:00 10/25/23 12:00 10/25/23 12:00 10/25/23 12:00 Laboratory Data at Discharge: WBC 6.90 thou/uL (4.3-10.9) 10/25/23 06:45 Hgb 10.0 g/dL (12.0-15.0) L 10/25/23 06:45 Hct 30.2 % (36.0-45.0) L 10/25/23 06:45 Plt Count 218 thou/uL (152-406) 10/25/23 06:45 PT 17.0 SECONDS (9.5-12.5) H 10/23/23 11:17 INR 1.57 10/23/23 11:17 Sodium 137 mEq/L (136-145) 10/25/23 06:45 Potassium 4.1 mEq/L (3.5-5.1) 10/25/23 06:45 BUN 25 mg/dL (7-18) H 10/25/23 06:45 Creatinine 1.00 mg/dL (0.55-1.02) 10/25/23 06:45 Glucose 97 mg/dL (74-106) 10/25/23 06:45 Phosphorus 2.6 mg/dL (2.5-4.9) 10/25/23 06:45 Magnesium 1.9 mg/dL (1.6-2.4) 10/25/23 06:45 Total Bilirubin 0.3 mg/dL (0.2-1.0) 10/23/23 12:01 AST 15 U/L (15-37) 10/23/23 12:01 ALT 19 U/L (13-56) 10/23/23 12:01 Alkaline Phosphatase 63 U/L (45-117) 10/23/23 12:01 Triglycerides 97 mg/dL (<150) 10/24/23 06:46 Cholesterol 133 mg/dL (<200) 10/24/23 06:46 HDL Cholesterol 64 mg/dL (40-60) H 10/24/23 06:46 Cholesterol/HDL Ratio 2.08 10/24/23 06:46 Lipase 39 U/L (13-75) 10/23/23 12:01 Home Medications: Apixaban [Eliquis] 5 mg PO BID 09/14/23 Ascorbic Acid 500 mg PO DAILY 09/14/23 Cholecalciferol (Vitamin D3) [Vitamin D3] 50 mcg PO DAILY 09/14/23 Cyanocobalamin [Vitamin B-12*] 1,000 mcg PO DAILY 09/14/23 Duloxetine HCl 30 mg PO DAILY 09/14/23 Estradiol Vaginal Insert 1 gm VAG SEECOM 09/14/23 Furosemide [Lasix*] 20 mg PO SEECOM PRN 09/14/23 Galantamine HBr [Galantamine ER] 8 mg PO BID 09/14/23 Levothyroxine Sodium [Synthroid] 150 mcg PO DAILY 09/14/23 Losartan Potassium [Cozaar] 100 mg PO DAILY 09/14/23 Magnesium Oxide [Magnesium] 400 mg PO BID 09/14/23 Memantine HCl [Namenda*] 10 mg PO DAILY 09/14/23 Potassium Chloride [Klor-Con 10] 10 meq PO DAILY 09/14/23 Pyridoxine HCl (Vitamin B6) [Pyridoxine HCl] 50 mg PO DAILY 09/14/23 Spironolactone [Aldactone] 50 mg PO DAILY 09/14/23 Zinc 50 Mg 100 mg PO DAILY 09/14/23 Bimatoprost [Lumigan] 0.01 % EACH EYE BEDTIME 10/24/23 Diclofenac Sodium [Voltaren] 4 gm TP QID 10/24/23 Fluticasone Propionate 1 spray NS DAILY 10/24/23 L. Acidophilus/Pectin, [place] [Acidophilus-Pectin Captab] 1 each PO DAILY 10/24/23 Cefpodoxime Proxetil [Vantin] 200 mg PO BID 10 Days #20 tab 10/25/23 Fidaxomicin [Dificid] 200 mg PO BID 10 Days #20 tab 10/25/23 New Medications: Fidaxomicin [Dificid] 200 mg PO BID 10 Days #20 tab Cefpodoxime Proxetil [Vantin] 200 mg PO BID 10 Days #20 tab Physician Discharge Instructions: Delphine Aldridge presented to the ED weakness. Her PCP received a positive C. Difficile test and recommended she come to the ED. It is reported she has failed PO vancomycin recently. Infectious disease was consulte and the decision was made to start treating with Fidaxomicin. Please stop taking the protonix as it increases the risk for C. difficile. 1. Please call and schedule a follow-up appointment with your PCP in 3-5 days -Continue to monitor C-diff and UTI - Please follow-up with your PCP for medication refills/adjustments 2. Stop taking Protonix for now, it increases the risk for C. difficile 3. Continue heart healthy diet 4. Fall precautions, use walker when ambulating 5. Return to the ED if symptoms worsen New medications Fidaxomicin 200 mg by mouth two times daily for 10 days cefpodozime 200 mg by mouth two times daily for 10 days Medication changes Stop taking protonix, it increases the risk for C. difficile Home Health resumption: [facility]: P: [phone] F:[phone] Diet: AHA Activity: Fall precautions Followup: Delroy Murphy MD [Primary Care Provider] - 1-2 Weeks
== END 2023-10-25 13:57 | disposition home health service (06) | DRG 371 ==
LOC: ER 10:44 → ERHOLD 14:32 → 4TH 15:28
PROVIDERS: ADMIT Internal Medicine; ATTEND Internal Medicine
DX: A04.72 Enterocolitis due to Clostridium difficile, not specified as recurrent (principal); N17.0 Acute kidney failure with tubular necrosis; I13.0 Hypertensive heart and chronic kidney disease with heart failure and stage 1 through stage 4 chronic kidney disease, or unspecified chronic kidney disease; I42.8 Other cardiomyopathies; N30.00 Acute cystitis without hematuria; E87.1 Hypo-osmolality and hyponatremia; I50.9 Heart failure, unspecified; N18.30 Chronic kidney disease, stage 3 unspecified; G30.9 Alzheimer's disease, unspecified; F02.80 Dementia in other diseases classified elsewhere, unspecified severity, without behavioral disturbance, psychotic disturbance, mood disturbance, and anxiety; E86.0 Dehydration; E83.39 Other disorders of phosphorus metabolism; I48.91 Unspecified atrial fibrillation; D72.829 Elevated white blood cell count, unspecified; Z79.01 Long term (current) use of anticoagulants; Z79.52 Long term (current) use of systemic steroids; Z79.890 Hormone replacement therapy; Z79.899 Other long term (current) drug therapy; Z96.649 Presence of unspecified artificial hip joint; Z96.659 Presence of unspecified artificial knee joint
CPT/HCPCS: 36415; 71045; 74176; 80048; 80061; 80076; 81001; 83605; 83690; 83735; 83880; 84100; 84439; 84443; 84484; 85025; 85610; 87040; 87045; 87046; 87086; 87088; 87324; 89055; 92610; 93005; 96374; 97116; 97161; 97530; 99284; J0692; J0696; J7030; J7040; J8499

== ENCOUNTER 2024-11-30 08:07 | Day surgery (SDC) | payer OTHER ==
[2024-11-30 08:46] LABS: Absolute Basophils 0.1 K/uL (0-0.5); Absolute Eosinophils 0.3 K/uL (0-0.5); Absolute Monocytes 0.8 K/uL (0.1-1.3); Absolute Neutrophil 3.2 K/uL (1.8-8.0); Basophils % 1.7 % (0-1.3); Eosinophils % 6.4 % (0-4.4); Hematocrit 33.9 % (36.0-45.0); Hemoglobin 11.6 g/dL (12.0-15.0); Lymphocytes % 18.2 % (15.3-44.8); MCH 31.8 pg (27.0-35.0); MCV 93.3 fL (80-100); MPV 8.6 fL (7.6-11.3); Monocytes % 14.4 % (3.3-12.3); Neutrophils % 59.3 % (41.7-73.7); Nucleated Red Blood Cells % 0.1 % (0-0); Platelets 174 thou/uL (152-406); RBC Red Blood Cell Count 3.64 M/uL (3.86-4.86); Red Cell Distribution Width 14.2 % (12.1-15.2)
[2024-11-30 08:54] LABS: PTT, Activated Partial Thromb 34.1 SECONDS (27.2-37.4); Protime INR 0.96
[2024-11-30 09:07] LABS: Albumin 3.8 g/dL (3.4-5.0); Albumin/Globulin Ratio 1.2 (1.1-1.8); Anion Gap 8.4 mEq/L (5.0-15.0); Bilirubin Direct 0.2 mg/dL (0-0.2); Bilirubin Indirect, Calculated 0.3 mg/dL (0.2-0.8); Bilirubin Total 0.5 mg/dL (0.2-1.0); Globulin 3.1 g/dL (2.3-3.5); Potassium 4.4 mEq/L (3.5-5.1); Protein, Total 6.9 g/dL (6.4-8.2)
[2024-11-30 09:46] VITALS: BMI 21.4
[2024-11-30 12:54] LABS: CSF Glucose 55 mg/dL (40-70)
[2024-11-30 13:35] LABS: Appearance CLEAR (CLEAR); Body Fluid Source CSF; Color of fluid Colorless (COLORLESS); Fluid Total Volume 12 ml; Tube # #4
[2024-11-30 13:36] LABS: Body Fluid WBC 1 /mm^3
[2024-11-30] MEDS: HYDROCOD 2.5mg-ACETAMIN 108mg/5mL Soln ONE (13:52)
[2024-11-30 14:18] VITALS: BP 135/65; TEMP 97.8; O2SAT 100
--- NOTE | 2024-11-30 14:49 | RAD REPORT ---
XR SPINE LUMBAR PUNCTURE CLINICAL INDICATION: MEMORY LOSS. TECHNIQUE: The risks (including the risks of bleeding, infection, headache, and need for an epidural blood patch), benefits, and alternatives of the procedure were carefully explained to the patient who wished to proceed. Informed written consent was obtained and a timeout procedure was performed pr ior to beginning the study. The patient was positioned on the fluoroscopy table in an oblique prone position. The skin over the l ower back was prepped and draped in the usual, sterile fashion. Local anesthesia was used for the subcutaneous soft tissues. A lumbar puncture was performed directing a spinal needle into the spinal canal under direct fluoroscopic guidance targeting L3-4 level, until the return of clear CSF was observed. FINDINGS: Opening pressure: Not Performed CSF appearance: Clear and free-flowing Total CSF volume removed: 12 cc. Samples were sent to the lab per the ordering physician's orders. Following completion of the procedure the needle was withdrawn and a band-aid placed over the punctur e site. Postprocedural instructions were given to the patient. Complications: None IMPRESSION: Successful fluoroscopically-guided LP, as above. Total fluoroscopy time was 0.5 minutes.
== END 2024-11-30 14:05 | disposition home or self-care (01) ==
LOC: DS 08:07
PROVIDERS: ATTEND Psychiatry & Neurology Neurology with Special Qualifications in Child Neurology
PROC: 009U3ZX Drainage of Spinal Canal, Percutaneous Approach, Diagnostic (ICD-10-PCS; principal; 2024-11-30)
PROC: B01BZZZ Fluoroscopy of Spinal Cord (ICD-10-PCS; 2024-11-30)
DX: G30.9 Alzheimer's disease, unspecified (principal); I10 Essential (primary) hypertension; C80.1 Malignant (primary) neoplasm, unspecified
CPT/HCPCS: 36415; 77003; 80048; 80076; 82542; 82945; 84157; 85025; 85610; 85730; 89050